=== PATIENT | female | born 1995 | race Caucasian/White ===

== ENCOUNTER 2017-07-21 14:55 | Outpatient (CLI) | payer OTHER, SELFPAY ==
[2017-07-21 15:14] VITALS: BMI 23.4
--- NOTE | 2017-08-03 19:32 | OB.TRI.NOTE ---
History of Present Illness Date of Service: 07/21/17 Was patient seen by the physician?: No Reason For Visit: NON STRESS TEST Date of Service: 07/21/17 Final YARON: 09/12/17 Final YARON Source: US <20 weeks Gestational age: 32.3 History of Present Illness: 22yo G1 with dichorionic diamnionic twin gestation for scheduled NST Home Medications Medication Instructions Recorded Vits [Prenatabs FA] 1 tablet PO DAILY 07/21/17 Allergies No Known Allergies Allergy (Verified 07/29/17 17:23) - Pertinent Past Medical History Pertinent Past Medical History: GDMA1 - diet controlled NST - FHR Rate Baby A Baseline: 150 Variability:: Moderate Accelerations:: 15 x 15 Decelerations:: None NST Reactive:: Yes FHR Category:: Category I Uterine Activity:: irritability - FHR Rate Baby B Baseline: 140 Variability:: Moderate Accelerations:: 15 x 15 Decelerations:: None NST Reactive:: Yes FHR Category:: Category I Uterine Activity:: irritability Impression/Plan 22yo G1 @ 32 3/7wga with dichorionoic diamnionic twin gestation, Cat I FHRs x 2 -d/c home
== END 2017-07-21 16:05 | disposition home or self-care (01) ==
LOC: WPOUT 15:01 → WP 15:02
PROVIDERS: Family Provider Family Medicine; PCP Family Medicine; Visit Provider Obstetrics & Gynecology
DX: O30.043 Twin pregnancy, dichorionic/diamniotic, third trimester (principal); Z3A.32 32 weeks gestation of pregnancy
CPT/HCPCS: 59025; 59050; 99218; G0378

== ENCOUNTER 2017-07-29 17:00 | Outpatient (CLI) | payer OTHER, SELFPAY ==
[2017-07-29 17:22] VITALS: BMI 23.8
--- NOTE | 2017-07-29 17:49 | OB.TRI.NOTE ---
History of Present Illness Date of Service: 07/29/17 Was patient seen by the physician?: No Reason For Visit: NST FOR TWINS Date of Service: 07/29/17 Final YARON: 09/12/17 Final YARON Source: US <20 weeks Gestational age: 33 Weeks and 4 Days History of Present Illness: NST for twins, scheduled Home Medications Medication Instructions Recorded Vits [Prenatabs FA] 1 tablet PO DAILY 07/21/17 Allergies No Known Allergies Allergy (Verified 07/29/17 17:23) Physical Exam General: Alert, Oriented x3, Cooperative, No apparent distress Abdomen: Gravid, - - LGA/twins Extremities:: No edema Estimated gestational size: Large for gestational age Presentation: Unable to assess NST - FHR Rate Baby A Baseline: 140s Variability:: Moderate Accelerations:: 15 x 15 Decelerations:: None NST Reactive:: Yes, Appropriate for gestational age FHR Category:: Category I Uterine Activity:: irregular - FHR Rate Baby B Baseline: 140s Variability:: Moderate Accelerations:: 15 x 15 Decelerations:: None NST Reactive:: Yes, Appropriate for gestational age FHR Category:: Category I Impression/Plan Cat 1 tracing for both twins. F/U as scheduled
== END 2017-07-29 17:50 | disposition home or self-care (01) ==
LOC: WPOUT 17:11 → WP 17:12
PROVIDERS: Family Provider Family Medicine; PCP Family Medicine; Visit Provider Obstetrics & Gynecology
DX: O30.003 Twin pregnancy, unspecified number of placenta and unspecified number of amniotic sacs, third trimester (principal); Z3A.33 33 weeks gestation of pregnancy
CPT/HCPCS: 59025

== ENCOUNTER → 2017-08-03 10:44 | Outpatient (CLI) | payer OTHER, SELFPAY ==
[2017-08-03 12:10] LABS: Hematocrit 37.7 % (37-47); Hemoglobin 12.9 g/dl (12.0-15.0); Mean Corp Hgb Conc 34.2 g/gl (32-36); Mean Corpuscular Hgb 32.2 pg (27.0-32.0); Mean Platelet Vol. 11.4 fl (6.2-12.0); Platelet Count 252 K/mm3 (150-450); RBC Distribution Width CV 12.2 % (11.6-14.6); RBC Distribution Width SD 41.8 fl (35.1-43.9); Red Blood Count 4.01 M/mm3 (4.2-5.4); White Blood Count 8.5 K/mm3 (4.4-11.0)
[2017-08-03 12:11] LABS: Scan Indicated on CBC? Y/N NO
[2017-08-03 12:23] LABS: ALB/GLOB Ratio 0.4 RATIO (0.9-2.4); AST(SGOT) 26 U/L (15-37); Alanine Aminotransfer ALT/SGPT 27 U/L (13-56); Alkaline Phosphatase 309 U/L (45-117); Anion Gap 9 (5-15); BUN 13 mg/dL (7-18); BUN/Creat Ratio 21.2 RATIO (10-20); Calcium,Total 8.7 mg/dL (8.5-10.1); Chloride 104 mmol/L (98-107); Creatinine, Serum 0.61 mg/dL (0.55-1.02); EST Glomerular Filtration Rate 128 mL/min (>60); Est Glom Filt Rate - Afr Amer 155 mL/min (>60); Globulin 4.6 g/dL (2.2-4.2); Glucose 77 mg/dL (74-106); Potassium 4.2 mmol/L (3.5-5.1); Protein, Total 6.6 g/dL (6.4-8.2); Sodium Level 137 mmol/L (136-145); Uric Acid 6.8 mg/dL (2.6-6.0)
== END ==
PROVIDERS: Family Provider Family Medicine; Visit Provider Obstetrics & Gynecology
DX: O13.3 Gestational [pregnancy-induced] hypertension without significant proteinuria, third trimester (principal); Z3A.00 Weeks of gestation of pregnancy not specified
CPT/HCPCS: 36415; 80053; 82570; 84156; 84550; 85027

== ENCOUNTER 2017-08-03 11:00 | Outpatient (CLI) | payer OTHER, SELFPAY ==
[2017-08-03 11:20] VITALS: BMI 24.3
--- NOTE | 2017-08-03 12:59 | OB.TRI.NOTE ---
History of Present Illness Date of Service: 08/03/17 Was patient seen by the physician?: No Reason For Visit: NST Date of Service: 09/12/17 Final YARON Source: US <20 weeks Gestational age: 34.2 History of Present Illness: 22yo G1 at 34 2/7wga with dichorionic diamnionic twin gestation for scheduled NST Home Medications Medication Instructions Recorded Vits [Prenatabs FA] 1 tablet PO DAILY 07/21/17 Allergies No Known Allergies Allergy (Verified 07/29/17 17:23) NST - FHR Rate Baby A Baseline: 150 Variability:: Moderate Accelerations:: 15 x 15 Decelerations:: None NST Reactive:: Yes FHR Category:: Category I Uterine Activity:: 2-4/10 - FHR Rate Baby B Baseline: 140 Variability:: Moderate Accelerations:: 15 x 15 Decelerations:: None NST Reactive:: Yes FHR Category:: Category I Uterine Activity:: 2-4/10 Impression/Plan 22yo G1 @ 34 2/7wga with di-di twins, Cat I FHRs x 2 -Cervix non-laboring per RN exam -d/c home
== END 2017-08-03 12:50 | disposition home or self-care (01) ==
LOC: WPOUT 11:07 → WP 11:10
PROVIDERS: Family Provider Family Medicine; PCP Family Medicine; Visit Provider Obstetrics & Gynecology
DX: O30.043 Twin pregnancy, dichorionic/diamniotic, third trimester (principal); Z3A.34 34 weeks gestation of pregnancy
CPT/HCPCS: 59025; 59050; 99218; G0378

== ENCOUNTER 2017-08-04 11:20 | Outpatient (CLI) | payer OTHER, SELFPAY ==
[2017-08-04] MEDS: Betamethasone/Betamethasone 30 MG/5 ML Vial 12 MG IM (12:00)
[2017-08-04 12:44] VITALS: BMI 24.3
[2017-08-04] MEDS: Acetaminophen 500 MG Tablet 1000 MG PO ×2 (13:46→21:34)
--- NOTE | 2017-08-04 16:08 | US_ITS ---
US OB Limited 1 Or More Fetus INDICATION: DR NEVAREZ WANTS POSITIONS AND ..TO CHECK FOR CORD BELOW HEAD OF BABY A COMPARISON: None TECHNIQUE: Ultrasonographic grayscale and Doppler duplex investigation of the twin . Findings: There is a twin gestation. Baby A is in cephalic position with a heart rate of 161 bpm. Baby B is in cephalic presentation with heart rate of 179 bpm. Baby A's head is noted at the cervix. Cervix is closed, measuring 1.6 cm. All provided images do not demonstrate any evidence of a cord distal to the head of baby A. US/OB Limited (No Biometrics) IMPRESSION: Limited ultrasound to investigate for possible cord prolapse. There is no evidence of cord or any significant vascular structure between the head of baby A (cephalic presentation) and the cervix. at 1843 Reported and signed by: Jumana Tapia MD Electronically Signed: Jumana Tapia MD at 17:41 EST Tel , Service support ,
[2017-08-04 16:59] LABS: Absolute Lymphocyte Count 1.19 X10^3/ul (0.83-4.51); Absolute Neutrophil Count 11.7 X10^3/uL (2.0-7.7); Basophil# 0.01 X10^3/uL; Basophil% 0.1 % (0-1); Hematocrit 36.1 % (37-47); Hemoglobin 12.4 g/dl (12.0-15.0); Lymphocyte # 1.19 X10^3/ul (4.0); Mean Corp Hgb Conc 34.3 g/gl (32-36); Mean Corpuscular Hgb 31.9 pg (27.0-32.0); Mean Corpuscular Volume 92.8 fL (81-99); Mean Platelet Vol. 11.4 fl (6.2-12.0); Monocyte# 0.22 X10^3/uL; Monocyte% 1.7 % (0-10); Neutrophil # 11.72 X10^3/uL (2.7-7.7); Neutrophil % 88.9 % (47-70); POSITIVE COUNT NO; POSITIVE DIFFERENTIAL NO; POSITIVE MORPHOLOGY NO; Platelet Count 263 K/mm3 (150-450); RBC Distribution Width CV 12.2 % (11.6-14.6); RBC Distribution Width SD 41.1 fl (35.1-43.9); Red Blood Count 3.89 M/mm3 (4.2-5.4); White Blood Count 13.2 K/mm3 (4.4-11.0)
[2017-08-04 20:29] LABS: Group B Strep DNA By PCR POSITIVE (Negative); Probe Check PASS
[2017-08-05] MEDS: Zolpidem Tartrate 5 MG Tablet PO (00:14)
[2017-08-05 05:21] LABS: Bedside Glucose 137 mg/dL (70-110)
--- NOTE | 2017-08-05 05:32 | OB.TRI.NOTE ---
History of Present Illness Date of Service: 08/04/17 Reason For Visit: ROPTL Date of Service: 08/04/17 Final YARON: 09/12/17 Gestational age: 34 Weeks and 4 Days History of Present Illness: 22 yo female presents at 34 3/7 wk for evaluation of UCs and was also told to come in for betamethasone. she has a twin IUP (concordant growth, Vtx, Vtx presentation) and has been dx with mild preclampsia. is on bedrest and to deliver by 37 wk if not delivered by then due to BPs She called in to office stating oscar all night and inc intensity and frequency of UCs if she is up at all and walking around. care: Twin IUP transfer of care from bilingual medical receptionist at 26 wks EGA d/t twin IUP Gestational diabetes, diet controlled. Home Medications Medication Instructions Recorded Vits [Prenatabs FA] 1 tablet PO DAILY 07/21/17 Allergies No Known Allergies Allergy (Verified 08/04/17 11:38) Physical Exam General: Alert, Oriented x3, Cooperative, No apparent distress Abdomen: Soft, Non Tender, Gravid Extremities:: No clubbing, No cyanosis, No edema Estimated gestational size: Appropriate for gestational size Cervix Dilation (cm): 3 - (tight three) Station: -1 Effacement (%): 80 - same later in day, but ? cord palpable?? sono ordered NO CORD @ cervix , VTX x two NST - FHR Rate Baby A Baseline: 130-140s accels to 170s Variability:: Moderate Accelerations:: 15 x 15 Decelerations:: None, Variable - rare, to 90-100 with quick return NST Reactive:: Yes, Appropriate for gestational age FHR Category:: Category I Uterine Activity:: UC noted q 2-6 mins - FHR Rate Baby B Baseline: 120-130 with accels to 160s Variability:: Moderate Accelerations:: 15 x 15 Decelerations:: Late - occasional late NST Reactive:: Yes, Appropriate for gestational age FHR Category:: Category I Impression/Plan 34 3/7 wk twin IUP. Vtx, Vtx Concordant growth 5# 2 oz and 5# 4 oz at sono 08/03/17 Mild preeclampsia UCs Admitted to observation Betamethasone 12 mg IM x 2 doses 24 hrs apart. Watch for labor progress ? cord noted on exam , inferior to VTX twin A SONO DONE SHOWS NO CORD PRESENTING. VTX VTX twin IUP continue observation and betamethasone as planned.
--- NOTE | 2017-08-05 05:43 | OB.TRI.HP_ITS ---
History of Present Illness Date of Service: 08/04/17 Reason For Visit: ROPTL Date of Service: 08/04/17 Final YARON: 09/12/17 Gestational age: 34 Weeks and 4 Days History of Present Illness: 22 yo female presents at 34 3/7 wk for evaluation of UCs and was also told to come in for betamethasone. she has a twin IUP (concordant growth , Vtx, Vtx presentation) and has been dx with mild preclampsia. is on bedrest and to deliver by 37 wk if not delivered by then due to BPs She called in to office stating oscar all night and inc intensity and frequency of UCs if she is up at all and walking around. care: Twin IUP transfer of care from human resources vice president at 26 wks EGA d/t twin IUP Gestational diabetes, diet controlled. Home Medications Medication Instructions Recorded Vits [Prenatabs FA] 1 tablet PO DAILY 07/21/17 Allergies No Known Allergies Allergy (Verified 08/04/17 11:38) Physical Exam General: Alert, Oriented x3, Cooperative, No apparent distress Abdomen: Soft, Non Tender, Gravid Extremities:: No clubbing, No cyanosis, No edema Estimated gestational size: Appropriate for gestational size Cervix Dilation (cm): 3 - (tight three) Station: -1 Effacement (%): 80 - same later in day, but ? cord palpable?? sono ordered NO CORD @ cervix , VTX x two NST - FHR Rate Baby A Baseline: 130-140s accels to 170s Variability:: Moderate Accelerations:: 15 x 15 Decelerations:: None, Variable - rare, to 90-100 with quick return NST Reactive:: Yes, Appropriate for gestational age FHR Category:: Category I Uterine Activity:: UC noted q 2-6 mins - FHR Rate Baby B Baseline: 120-130 with accels to 160s Variability:: Moderate Accelerations:: 15 x 15 Decelerations:: Late - occasional late NST Reactive:: Yes, Appropriate for gestational age FHR Category:: Category I Impression/Plan 34 3/7 wk twin IUP. Vtx, Vtx Concordant growth 5# 2 oz and 5# 4 oz at sono Mild preeclampsia UCs Admitted to observation Betamethasone 12 mg IM x 2 doses 24 hrs apart. Watch for labor progress ? cord noted on exam , inferior to VTX twin A SONO DONE SHOWS NO CORD PRESENTING. VTX VTX twin IUP continue observation and betamethasone as planned.
--- NOTE | 2017-08-05 06:01 | OB.TRI.PN ---
Progress Notes Date of Service: 08/05/17 Progress Note: 22 yo female 34 4/7 wk EGA . TWINS VTX-VTX Rested overnight. Category I tracing on both twins Slept with Ambien given Irreg UCs at times q 13 mins and other times more frequent CX: 80/-2 slightly posterior. VTX well applied to cervix and no palpable cord noted. A/P: 34 4/7 wk twin IUP. Mild preeclampsia. BPs stable at rest Betmethasone second dose to be given at noon. Dischg home after second dose BMZ if remains stable.
[2017-08-05 11:56] VITALS: BP 136/75; PULSE 89; RESP 16; TEMP 36.7
[2017-08-05] MEDS: Betamethasone/Betamethasone 30 MG/5 ML Vial 12 MG IM (12:01)
== END 2017-08-05 12:50 | disposition home or self-care (01) ==
LOC: WPOUT 11:36 → WP 11:37
PROVIDERS: Obstetrics & Gynecology; Family Provider Family Medicine; PCP Family Medicine; Visit Provider Obstetrics & Gynecology
DX: O30.003 Twin pregnancy, unspecified number of placenta and unspecified number of amniotic sacs, third trimester (principal); O14.03 Mild to moderate pre-eclampsia, third trimester; O24.410 Gestational diabetes mellitus in pregnancy, diet controlled; O60.03 Preterm labor without delivery, third trimester; Z3A.34 34 weeks gestation of pregnancy
CPT/HCPCS: 36415; 59025; 59050; 76815; 82962; 85025; 86850; 86900; 87653; 96372; 99218; A4216; G0378; J0702

== ENCOUNTER 2017-08-10 10:23 | Outpatient (CLI) | payer OTHER, SELFPAY ==
[2017-08-10 11:20] LABS: Hematocrit 37.7 % (37-47); Hemoglobin 12.8 g/dl (12.0-15.0); Mean Corpuscular Hgb 31.6 pg (27.0-32.0); Mean Corpuscular Volume 93.1 fL (81-99); Mean Platelet Vol. 11.2 fl (6.2-12.0); Platelet Count 275 K/mm3 (150-450); RBC Distribution Width CV 12.1 % (11.6-14.6); RBC Distribution Width SD 40.9 fl (35.1-43.9); Red Blood Count 4.05 M/mm3 (4.2-5.4); White Blood Count 8.2 K/mm3 (4.4-11.0)
[2017-08-10 11:22] LABS: Scan Indicated on CBC? Y/N NO
[2017-08-10 11:25] LABS: Protein, Urine (Random) 78.5 mg/dL (<11.9)
[2017-08-10 11:31] LABS: ALB/GLOB Ratio 0.4 RATIO (0.9-2.4); AST(SGOT) 30 U/L (15-37); Alanine Aminotransfer ALT/SGPT 36 U/L (13-56); Albumin, Serum 1.9 g/dL (3.2-5.0); Alkaline Phosphatase 339 U/L (45-117); Anion Gap 9 (5-15); BUN 14 mg/dL (7-18); BUN/Creat Ratio 22.4 RATIO (10-20); Calcium,Total 8.3 mg/dL (8.5-10.1); Chloride 107 mmol/L (98-107); Creatinine, Serum 0.63 mg/dL (0.55-1.02); EST Glomerular Filtration Rate 125 mL/min (>60); Est Glom Filt Rate - Afr Amer 152 mL/min (>60); Globulin 4.4 g/dL (2.2-4.2); Glucose 86 mg/dL (74-106); Protein, Total 6.3 g/dL (6.4-8.2); Sodium Level 139 mmol/L (136-145); Uric Acid 6.9 mg/dL (2.6-6.0)
[2017-08-10 11:41] VITALS: BMI 24.3
--- NOTE | 2017-08-12 07:14 | OB.TRI.NOTE ---
History of Present Illness Date of Service: 08/10/17 Reason For Visit: INDUCED HYPERTENSION Date of Service: 08/10/17 Final YARON: 09/12/17 Final YARON Source: US <20 weeks Gestational age: 35 Weeks and 4 Days History of Present Illness: 35+ week intrauterine with twin gestation presents for routine nonstress test. uneventful except for some mild PIH symptoms Home Medications Medication Instructions Recorded Vits [Prenatabs FA] 1 tablet PO DAILY 07/21/17 Allergies No Known Allergies Allergy (Verified 08/04/17 11:38) NST - FHR Rate Baby A NST Reactive:: Yes - FHR Rate Baby B NST Reactive:: Yes Impression/Plan 35+ week gestation with twin gestation with reactive nonstress test ?2. Minimal PIH symptoms and PIH panel was okay. Was noted that uric acid was 6.9. Routine follow-up in the office encouraged. Patient also encouraged to call with any increase of PIH symptoms.
== END 2017-08-10 12:35 | disposition home or self-care (01) ==
LOC: WOBLAB 11:25 → WP 11:26
PROVIDERS: Obstetrics & Gynecology; Visit Provider Obstetrics & Gynecology
DX: O13.9 Gestational [pregnancy-induced] hypertension without significant proteinuria, unspecified trimester (principal); Z34.83 Encounter for supervision of other normal pregnancy, third trimester
CPT/HCPCS: 36415; 59025; 59050; 80053; 82570; 84156; 84550; 85027; 99218; G0378

== ENCOUNTER 2017-08-17 09:25 | Inpatient (IN) | payer SELFPAY ==
[2017-08-17 09:47] VITALS: BMI 24.3
[2017-08-17] MEDS: Lactated Ringers 1,000 ML 50 ML IV ×2 (10:02→14:41)
[2017-08-17] MEDS: Oxytocin 30 units/NS 500 ml 30 UNITS/500 ML IV.SOLN IV (10:40)
[2017-08-17 10:41] LABS: International Normalized Ratio 0.9; Prothrombin Time (Protime)PT. 12.4 SECONDS (11.7-14.9)
[2017-08-17 10:42] LABS: Partial Thromboplast Time 30.3 Seconds (24.1-36.2)
[2017-08-17 10:44] LABS: Hematocrit 36.5 % (37-47); Hemoglobin 12.6 g/dl (12.0-15.0); Mean Corp Hgb Conc 34.5 g/gl (32-36); Mean Corpuscular Hgb 32.5 pg (27.0-32.0); Mean Corpuscular Volume 94.1 fL (81-99); Mean Platelet Vol. 12.2 fl (6.2-12.0); Platelet Count 230 K/mm3 (150-450); RBC Distribution Width CV 12.2 % (11.6-14.6); RBC Distribution Width SD 40.8 fl (35.1-43.9); Red Blood Count 3.88 M/mm3 (4.2-5.4); White Blood Count 9.4 K/mm3 (4.4-11.0)
[2017-08-17 10:55] LABS: Scan Indicated on CBC? Y/N NO
[2017-08-17 11:03] LABS: AST(SGOT) 25 U/L (15-37); Alanine Aminotransfer ALT/SGPT 22 U/L (13-56); Creatinine, Serum 0.58 mg/dL (0.55-1.02); EST Glomerular Filtration Rate 136 mL/min (>60); Est Glom Filt Rate - Afr Amer 165 mL/min (>60); Estimated Creatinine Clearance 135.74 ml/min; Uric Acid 6.9 mg/dL (2.6-6.0)
--- NOTE | 2017-08-17 12:32 | PCM.HP.OB ---
- Problem List (1) Preeclampsia Status: Acute Qualifiers: Trimester: third trimester Qualified Code(s): O14.93 - Unspecified pre-eclampsia, third trimester (2) Dichorionic diamniotic twin gestation Status: Acute Qualifiers: Trimester: third trimester Qualified Code(s): O30.043 - Twin , dichorionic/diamniotic, third trimester (3) Gestational diabetes mellitus Status: Acute Qualifiers: Gestational diabetes mellitus control: diet-controlled Trimester: third trimester Qualified Code(s): O24.410 - Gestational diabetes mellitus in , diet controlled History Date of Admission: 08/17/17 Final YARON: 09/12/17 Final YARON Source: US <20 weeks Gestational age: 36 Weeks and 5 Days History of this : Ms. Pinzon any 2-year-old 1 para 0 at 36-2/7 weeks gestational age with dichorionic diamniotic twin gestation and gestational diabetes admitted with preeclampsia. Monitor for preeclampsia since 34 weeks gestational age and received betamethasone on August 04 - August 05, 2017. She was seen in the office earlier today and reported headache ?3 days. Denied vision changes, right upper quadrant pain. No contractions, no leaking of fluid, no vaginal bleeding. She had active movement ?2. 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 Chorionic diamniotic twin gestation, male and female. Female has two-vessel cord. Prior marginal previa on 20 week scan resolved. labs -1 hour Glucola 147. 3 hour GTT declined, fingerstick blood sugars with hyperglycemia. Now controlled with diet. -HIV nonreactive -Hepatitis C antibody negative -A+ -RPR nonreactive -Hep B surface antigen nonreactive -Gonorrhea negative, chlamydia negative -GBS positive Family history: mother -hypertension Allergies No Known Allergies Allergy (Verified 08/04/17 11:38) Current Medications Acetaminophen (Tylenol) 325 - 650 mg PO Q4H PRN PRN PRN Reason: PAIN OR FEVER >100.4F Al Hydroxide/Mg Hydroxide (Mylanta Ii) 15 - 30 ml PO Q4H PRN PRN PRN Reason: INDIGESTION Citric Acid/Sodium Citrate (Bicitra) 30 ml PO UD PRN Lactated Ringer's () 1,000 mls @ 50 mls/hr IV .Q20H [facility] Last Admin: 08/17/17 10:02 Dose: 50 mls/hr Oxytocin/Sodium Chloride () 30 units in 500 mls @ 1 mls/hr IV .Q500H [facility] Last Admin: 08/17/17 10:40 Dose: 1 mls/hr Penicillin G Potassium 5 mu/ (Dextrose) 105 mls @ 150 mls/hr IV X1 ONE Stop: 08/17/17 12:56 Last Admin: 08/17/17 12:25 Dose: 150 mls/hr Penicillin G Potassium/Dextrose (Penicillin G Potassium) 3 mu in 50 mls @ 100 mls/hr IV Q4H [facility] Nalbuphine HCl (Nubain) 5 - 10 mg IV Q3H PRN PRN PRN Reason: PAIN (4-10/10) Ondansetron HCl (Zofran) 4 mg IV Q8H PRN PRN PRN Reason: NAUSEA Promethazine HCl (Phenergan (Ll)) 6.25 - 12.5 mg IV Q4H PRN PRN; Protocol PRN Reason: IF NAUSEA PERSISTS Sodium Chloride () 5 - 15 ml IV UD [facility] Last Admin: 08/17/17 10:56 Dose: Not Given HOME MEDICATIONS: multivitamin - 1 tab PO daily DHA - 1 tab PO daily Alcohol: None Drug Use: none Number of Fetus(es): 2 Review of Systems Constitutional: Denies: Fever, Fatigue Eyes: Denies: Blurred vision Cardiovascular: Denies: Chest Pain, Edema, Heaviness, Palpitations Respiratory: Denies: Shortness of Breath Gastrointestinal: Denies: Abdominal Pain, Nausea, Vomiting Gynecological: Denies: Vaginal bleeding Neurological: Reports: Headaches. Denies: Blurred vision Physical Exam General: Alert, Oriented x3, Cooperative, No apparent distress Cardiovascular: Regular rate, Regular Rhythm, Normal S2 Lungs: Clear to auscultation, Normal air movement Abdomen: Bowel Sounds Present, Soft, Non Tender, Non-Distended, Gravid Extremities:: Other - +3 b/l LE DTRs, no clonus Estimated gestational size: Appropriate for gestational size Cervix Dilation (cm): 3.5 Station: -3 Effacement (%): 75 Assessment/Plan Active and Suspected Problems Preeclampsia (Acute) Dichorionic diamniotic twin gestation (Acute) Gestational diabetes mellitus (Acute) 22-year-old 1 at 36-2/7 weeks gestational age with dichorionic diamniotic twin gestation with preeclampsia and severe features, gestational diabetes-diet controlled, GBS positive. -EFW A-[id number], B-[id number] gms on 08/03/17, US today both cephalic. Cat I FHRs x 2. -Pt declines Tylenol for headache. -Plan for magnesium for seizure prophylaxis -Pitocin for favorable cervix -PCN for GBS ppx -Continuous monitoring -Monitor blood sugars per protocol -Reviewed with patient and spouse plan of care and they are in agreement. Questions answered to their satisfaction.
[2017-08-17 12:35] LABS: Bedside Glucose 102 mg/dL (70-110)
--- NOTE | 2017-08-17 12:45 | HP.PCM_ITS ---
- Problem List (1) Preeclampsia Status: Acute Qualifiers: Trimester: third trimester Qualified Code(s): O14.93 - Unspecified pre- eclampsia, third trimester (2) Dichorionic diamniotic twin gestation Status: Acute Qualifiers: Trimester: third trimester Qualified Code(s): O30.043 - Twin , dichorionic/diamniotic, third trimester (3) Gestational diabetes mellitus Status: Acute Qualifiers: Gestational diabetes mellitus control: diet-controlled Trimester: third trimester Qualified Code(s): O24.410 - Gestational diabetes mellitus in , diet controlled History Date of Admission: 08/17/17 Final YARON: 09/12/17 Final YARON Source: US <20 weeks Gestational age: 36 Weeks and 5 Days History of this : Ms. Pinzon any 2-year-old 1 para 0 at 36-2/7 weeks gestational age with dichorionic diamniotic twin gestation and gestational diabetes admitted with preeclampsia. Monitor for preeclampsia since 34 weeks gestational age and received betamethasone on August 04 - August 05, 2017. She was seen in the office earlier today and reported headache ?3 days. Denied vision changes, right upper quadrant pain. No contractions, no leaking of fluid, no vaginal bleeding. She had active movement ?2. 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 Chorionic diamniotic twin gestation, male and female. Female has two-vessel cord. Prior marginal previa on 20 week scan resolved. labs -1 hour Glucola 147. 3 hour GTT declined, fingerstick blood sugars with hyperglycemia. Now controlled with diet. -HIV nonreactive -Hepatitis C antibody negative -A+ -RPR nonreactive -Hep B surface antigen nonreactive -Gonorrhea negative, chlamydia negative -GBS positive Family history: mother -hypertension Allergies No Known Allergies Allergy (Verified 08/04/17 11:38) Current Medications Acetaminophen (Tylenol) 325 - 650 mg PO Q4H PRN PRN PRN Reason: PAIN OR FEVER >100.4F Al Hydroxide/Mg Hydroxide (Mylanta Ii) 15 - 30 ml PO Q4H PRN PRN PRN Reason: INDIGESTION Citric Acid/Sodium Citrate (Bicitra) 30 ml PO UD PRN Lactated Ringer's () 1,000 mls @ 50 mls/hr IV .Q20H [facility] Last Admin: 08/17/17 10:02 Dose: 50 mls/hr Oxytocin/Sodium Chloride () 30 units in 500 mls @ 1 mls/hr IV .Q500H [facility] Last Admin: 08/17/17 10:40 Dose: 1 mls/hr Penicillin G Potassium 5 mu/ (Dextrose) 105 mls @ 150 mls/hr IV X1 ONE Stop: 08/17/17 12:56 Last Admin: 08/17/17 12:25 Dose: 150 mls/hr Penicillin G Potassium/Dextrose (Penicillin G Potassium) 3 mu in 50 mls @ 100 mls/hr IV Q4H [facility] Nalbuphine HCl (Nubain) 5 - 10 mg IV Q3H PRN PRN PRN Reason: PAIN (4-10/10) Ondansetron HCl (Zofran) 4 mg IV Q8H PRN PRN PRN Reason: NAUSEA Promethazine HCl (Phenergan (Ll)) 6.25 - 12.5 mg IV Q4H PRN PRN; Protocol PRN Reason: IF NAUSEA PERSISTS Sodium Chloride () 5 - 15 ml IV UD [facility] Last Admin: 08/17/17 10:56 Dose: Not Given HOME MEDICATIONS: multivitamin - 1 tab PO daily DHA - 1 tab PO daily Alcohol: None Drug Use: none Number of Fetus(es): 2 Review of Systems Constitutional: Denies: Fever, Fatigue Eyes: Denies: Blurred vision Cardiovascular: Denies: Chest Pain, Edema, Heaviness, Palpitations Respiratory: Denies: Shortness of Breath Gastrointestinal: Denies: Abdominal Pain, Nausea, Vomiting Gynecological: Denies: Vaginal bleeding Neurological: Reports: Headaches. Denies: Blurred vision Physical Exam General: Alert, Oriented x3, Cooperative, No apparent distress Cardiovascular: Regular rate, Regular Rhythm, Normal S2 Lungs: Clear to auscultation, Normal air movement Abdomen: Bowel Sounds Present, Soft, Non Tender, Non-Distended, Gravid Extremities:: Other - +3 b/l LE DTRs, no clonus Estimated gestational size: Appropriate for gestational size Cervix Dilation (cm): 3.5 Station: -3 Effacement (%): 75 Assessment/Plan Active and Suspected Problems Preeclampsia (Acute) Dichorionic diamniotic twin gestation (Acute) Gestational diabetes mellitus (Acute) 22-year-old 1 at 36-2/7 weeks gestational age with dichorionic diamniotic twin gestation with preeclampsia and severe features, gestational diabetes-diet controlled, GBS positive. -EFW A-2313, B-2394 gms on 08/03/17, US today both cephalic. Cat I FHRs x 2. -Pt declines Tylenol for headache. -Plan for magnesium for seizure prophylaxis -Pitocin for favorable cervix -PCN for GBS ppx -Continuous monitoring -Monitor blood sugars per protocol -Reviewed with patient and spouse plan of care and they are in agreement. Questions answered to their satisfaction.
[2017-08-17 13:51] LABS: Bedside Glucose 66 mg/dL (70-110)
[2017-08-17] MEDS: Magnesium Sulfate 20 GM/500 ML BAG IV (14:05)
[2017-08-17 14:51] LABS: Bedside Glucose 121 mg/dL (70-110)
[2017-08-17 14:51] LABS: Bedside Glucose 62 mg/dL (70-110)
[2017-08-17 15:36] LABS: Bedside Glucose 128 mg/dL (70-110)
[2017-08-17 17:26] LABS: Bedside Glucose 77 mg/dL (70-110)
[2017-08-17 18:57] LABS: Bedside Glucose 82 mg/dL (70-110)
[2017-08-17] MEDS: Acetaminophen 325 MG Tablet PO (19:39)
[2017-08-17 20:06] LABS: Protein:Creat Ratio 1683 mg/g CRE (0-200)
[2017-08-17 22:36] LABS: Bedside Glucose 66 mg/dL (70-110)
[2017-08-17 23:51] LABS: Bedside Glucose 82 mg/dL (70-110)
[2017-08-18] VITALS (7 sets, daily range): BP systolic 94–100; BP diastolic 48–60; PULSE 91–125; RESP 16–18; TEMP 36–36.2; O2SAT 98–100
[2017-08-18] MEDS: Magnesium Sulfate 20 GM/500 ML BAG IV ×3 (00:19→22:25)
[2017-08-18 02:51] LABS: Bedside Glucose 76 mg/dL (70-110)
[2017-08-18] MEDS: Acetaminophen 325 MG Tablet PO ×2 (04:29→14:23)
[2017-08-18] MEDS: Ondansetron 4 MG/2 ML Vial IV ×3 (05:57→23:34)
[2017-08-18 06:50] LABS: Bedside Glucose 76 mg/dL (70-110)
--- NOTE | 2017-08-18 07:13 | PCM.PN.BLA ---
Progress Note LABOR PROGRESS NOTE Relates headache persists, mild, improved from prior. Has blurred vision AVSS GEN - NAD, AAO x 3 ABD - gravid, soft, NT EXT - no LE edema NEURO - + 1 b/l LE DTRs, +1 b/l UE DTRs FHR A 120, moderate variability, + accelerations, no decelerations FHR B 120, moderate variability, no acceleration, no decelerations, some loss of contact SVE 4/75/-2, cephalic A/P: 22yo G1 @ 36 3/7wga with dichorionic diamnionic twin gestation, GDMA1, Cat I FHR on magnesium with si/sx toxicity or worsening preeclampsia. -Amniotomy performed with clear fluid -IUPC placed, if contractions adequate will maintain pitocin. If inadequate will plan for pitocin break. - statuses overall reassuring
[2017-08-18] MEDS: 0.9% Saline Lock 10 ML Syringe IV (09:46)
[2017-08-18 10:40] LABS: Bedside Glucose 72 mg/dL (70-110)
[2017-08-18] MEDS: Lactated Ringers 1,000 ML 50 ML IV (11:08)
--- NOTE | 2017-08-18 12:38 | PCM.PN.BLA ---
Progress Note LABOR PROGRESS NOTE c/o rectal pressure with contractions. AVSS GEN - NAD, AAO x 3 FHR A - 120, moderate variability, + accelerations, no decelerations FHR B - 120, moderate variability, + accelerations, some loss of contact unclear if deceleration versus maternal heart rate SVE 5.5/90/0, cephalic EXT - +1 b/l LE DTRS, +1 b/l LE edema A/P: 22yo G1 @ 36 3/7wga in latent labor, IOL for preeclampsia with severe features, GDMA1, GBS positive, Cat I-II FHR -No si/sx magesium toxicity or worsening preeclampsia -Continue pitocin as tolerated by mother and fetuses
[2017-08-18 13:11] LABS: Bedside Glucose 69 mg/dL (70-110)
[2017-08-18 13:56] LABS: Bedside Glucose 77 mg/dL (70-110)
[2017-08-18 13:56] LABS: Bedside Glucose 68 mg/dL (70-110)
[2017-08-18 15:11] LABS: Bedside Glucose 78 mg/dL (70-110)
[2017-08-18 17:41] LABS: Bedside Glucose 88 mg/dL (70-110)
[2017-08-18 19:06] LABS: Bedside Glucose 96 mg/dL (70-110)
[2017-08-18] MEDS: Oxytocin 30 units/NS 500 ml 30 UNITS/500 ML IV.SOLN 334 UNITS IV (19:38)
[2017-08-18] MEDS: Carboprost Tromethamine 250 MCG/ML Ampul IM ×2 (19:40→20:06)
[2017-08-18] MEDS: miSOPROStol 200 MCG Tablet 800 MCG RECTAL (20:01)
[2017-08-18 20:18] LABS: International Normalized Ratio 1.1; Prothrombin Time (Protime)PT. 14.4 SECONDS (11.7-14.9)
[2017-08-18 20:19] LABS: Fibrinogen 542 mg/dl (203-444); Partial Thromboplast Time 27.5 Seconds (24.1-36.2)
[2017-08-18 20:20] LABS: Absolute Lymphocyte Count 1.63 X10^3/ul (0.83-4.51); Basophil# 0.02 X10^3/uL; Basophil% 0.2 % (0-1); Hematocrit 29.5 % (37-47); Hemoglobin 9.7 g/dl (12.0-15.0); Lymphocyte # 1.63 X10^3/ul (4.0); Lymphocyte % 13.5 % (19-41); Mean Corp Hgb Conc 32.9 g/gl (32-36); Mean Corpuscular Hgb 31.8 pg (27.0-32.0); Mean Corpuscular Volume 96.7 fL (81-99); Mean Platelet Vol. 11.5 fl (6.2-12.0); Monocyte# 0.45 X10^3/uL; Monocyte% 3.7 % (0-10); Neutrophil # 9.95 X10^3/uL (2.7-7.7); Neutrophil % 82.4 % (47-70); Platelet Count 283 K/mm3 (150-450); RBC Distribution Width CV 13.1 % (11.6-14.6); RBC Distribution Width SD 45.4 fl (35.1-43.9); Red Blood Count 3.05 M/mm3 (4.2-5.4); White Blood Count 12.1 K/mm3 (4.4-11.0)
[2017-08-18 20:21] LABS: Differential Indicated SCAN CRITERIA MET; POSITIVE COUNT NO; POSITIVE DIFFERENTIAL NO; POSITIVE MORPHOLOGY YES
[2017-08-18 20:58] LABS: Anisocytosis RARE; Macrocytosis RARE; Platelet Estimate ADEQUATE (ADEQ)
--- NOTE | 2017-08-18 21:24 | PCM.OB.VAG ---
- Problem List (1) Preeclampsia Status: Acute Qualifiers: Trimester: third trimester Qualified Code(s): O14.93 - Unspecified pre-eclampsia, third trimester (2) Dichorionic diamniotic twin gestation Status: Acute Qualifiers: Trimester: third trimester Qualified Code(s): O30.043 - Twin , dichorionic/diamniotic, third trimester (3) Gestational diabetes mellitus Status: Acute Qualifiers: Gestational diabetes mellitus control: diet-controlled Trimester: third trimester Qualified Code(s): O24.410 - Gestational diabetes mellitus in , diet controlled Vaginal Delivery Maternal Presentation: Medically Indicated Induction Method of Induction: Pitocin, Amniotomy Medical Reason for Induction: - - Preeclampsia with severe features Amniotic Membrane Rupture Type: Artificial Rupture of Membrane time: 08/18/17 Amniotic Fluid Description: Clear Final YARON: 09/12/17 Final YARON Source: US <20 weeks Gestational age: 36 Weeks and 3 Days doctor who attended delivery (if requested by OB): Kayla Phillips Date of Procedure: 08/18/17 Pre-Operative Diagnosis: 36 3/7wga, preeclampsia, GDM, GBS positive Post-Operative Diagnosis: same Surgery/ Procedure Performed: Spontaneous Vaginal Delivery, Vacuum Assisted Vaginal Delivery, - - See note Anesthesiologist: Roxanna Patel Type of Anesthesia: Epidural Description of Procedure: Patient FD/+2 with fetuses cephalic and cephalic. She pushed over approximately 2.5 hours to deliver a male in OA over and intact perineum. infant was place on the maternal abdomen and attended by nursery personnel. The cord was doubly clamped and cut. Twin B remained cephalic and Cat I FHR. She was was guided into the pelvis with fundal pressure and amniotomy performed with clear fluid. The exam was FD/0 station. Baby B began to have deepening decelerations with each contraction. I advised vacuum extraction with review of risks including scalp edema, laceration with possible infection or need for sutures, subgaleal hemorrhage, skull fracture, cephalohematoma. Patient and were in agreement to proceed. Baby B was direct OP. The vacuum was placed at the flexion point and 500mmHg applied. There were two pop-offs with a third application with pop-offs. A Right mediolateral episiotomy was cut and the patient delivered shortly thereafter. The delivered through a tight nuchal cord, the cord was reduced following delivery, and she was placed on the maternal abdomen. She had decreased tone, thus the cord doubly clamped and cut immediately, and the was further attended by nursery personnel and the Dba Manager wind farm operations manager. Cord gas specimen were obtained for each baby. Placentas delivered spontaneously and appeared intact on inspection. Placenta A cord has 2 clamps. Placenta B cord has 1 clamp. There was hemorrhage. The cervix intact on inspection, no significant vaginal lacerations apart from the episiotomy noted. An intrauterine exam was performed with retrieval of blood and clots, few membranes. Bimanual uterine massage was performed with improvement of fundal tone. IV pitocin, IM hemabate and cytotec were administered per rectum. Organized clot remained in the uterus on exam. US guided banjo curettage was performed following recurrence of bleeding and additional hemabate administered. The uterine stripe was thin following curettage. A Bakri balloon was placed and filled, however, there continued to be oozing of blood around it. Repeat US showed the Bakri malpositioned in the lower uterine segment. Tranexamic acid ordered and type and cross. The Bakri balloon was deflated under US guidance with Dr. Bloom performing US. The Bakri was repositioned into the uterine fundus and filled with a total of 360cc NS with significant improvement of hemostasis. Blood transfusion was started in the OR. Baby A 2597g, Baby B 2690g, 2VC Presentation: Vertex Placental Delivery Description: Spontaneous Placenta Disposition: Sent to Pathology Cord Vessel Description: 3 Vessels Cord Gases drawn per routine: ABG, VBG Cord Entanglement: None Drain: Stuart to straight drain Estimated Blood Loss: 2000 mL Infant A gender: Male (1 minute): 8 (5 minute): 8 Episiotomy Description: Right Mediolateral, Perineal Extension/lac, 2nd degree Medications given after delivery: IV Pitocin, IM Hemabate, - - Cytotec Complications: - - hemorrhage - see procedure note Baby B - Information Amniotic Membrane Rupture Type: Artificial Presentation: Vertex - Operative Information Cord Entanglement: Around neck x 1, tight Cord Vessel Description: 2 Vessels B gender: Female (1 minute): 1 (5 minute): 7 - 8 at 10 minutes of life
--- NOTE | 2017-08-18 21:29 | OP.PCM_ITS ---
- Problem List (1) Preeclampsia Status: Acute Qualifiers: Trimester: third trimester Qualified Code(s): O14.93 - Unspecified pre- eclampsia, third trimester (2) Dichorionic diamniotic twin gestation Status: Acute Qualifiers: Trimester: third trimester Qualified Code(s): O30.043 - Twin , dichorionic/diamniotic, third trimester (3) Gestational diabetes mellitus Status: Acute Qualifiers: Gestational diabetes mellitus control: diet-controlled Trimester: third trimester Qualified Code(s): O24.410 - Gestational diabetes mellitus in , diet controlled Vaginal Delivery Maternal Presentation: Medically Indicated Induction Method of Induction: Pitocin, Amniotomy Medical Reason for Induction: - - Preeclampsia with severe features Amniotic Membrane Rupture Type: Artificial Rupture of Membrane time: 08/18/17 Amniotic Fluid Description: Clear Final YARON: 09/12/17 Final YARON Source: US <20 weeks Gestational age: 36 Weeks and 3 Days doctor who attended delivery (if requested by OB): Kayla Phillips Date of Procedure: 08/18/17 Pre-Operative Diagnosis: 36 3/7wga, preeclampsia, GDM, GBS positive Post-Operative Diagnosis: same Surgery/ Procedure Performed: Spontaneous Vaginal Delivery, Vacuum Assisted Vaginal Delivery, - - See note Anesthesiologist: Roxanna Patel Type of Anesthesia: Epidural Description of Procedure: Patient FD/+2 with fetuses cephalic and cephalic. She pushed over approximately 2.5 hours to deliver a male infant in OA over and intact perineum. was place on the maternal abdomen and attended by nursery personnel. The cord was doubly clamped and cut. Twin B remained cephalic and Cat I FHR. She was was guided into the pelvis with fundal pressure and amniotomy performed with clear fluid. The exam was FD/0 station. Baby B began to have deepening decelerations with each contraction. I advised vacuum extraction with review of risks including scalp edema, laceration with possible infection or need for sutures, subgaleal hemorrhage, skull fracture, cephalohematoma. Patient and were in agreement to proceed. Baby B was direct OP. The vacuum was placed at the flexion point and 500mmHg applied. There were two pop-offs with a third application with pop-offs. A Right mediolateral episiotomy was cut and the patient delivered shortly thereafter. The delivered through a tight nuchal cord, the cord was reduced following delivery, and she was placed on the maternal abdomen. She had decreased tone, thus the cord doubly clamped and cut immediately, and the was further attended by nursery personnel and the Hybrid Technologist operations support analyst. Cord gas specimen were obtained for each baby. Placentas delivered spontaneously and appeared intact on inspection. Placenta A cord has 2 clamps. Placenta B cord has 1 clamp. There was hemorrhage. The cervix intact on inspection, no significant vaginal lacerations apart from the episiotomy noted. An intrauterine exam was performed with retrieval of blood and clots, few membranes. Bimanual uterine massage was performed with improvement of fundal tone. IV pitocin, IM hemabate and cytotec were administered per rectum. Organized clot remained in the uterus on exam. US guided banjo curettage was performed following recurrence of bleeding and additional hemabate administered. The uterine stripe was thin following curettage. A Bakri balloon was placed and filled, however, there continued to be oozing of blood around it. Repeat US showed the Bakri malpositioned in the lower uterine segment. Tranexamic acid ordered and type and cross. The Bakri balloon was deflated under US guidance with Dr. Bloom performing US. The Bakri was repositioned into the uterine fundus and filled with a total of 360cc NS with significant improvement of hemostasis. Blood transfusion was started in the OR. Baby A 2597g, Baby B 2690g, 2VC Presentation: Vertex Placental Delivery Description: Spontaneous Placenta Disposition: Sent to Pathology Cord Vessel Description: 3 Vessels Cord Gases drawn per routine: ABG, VBG Cord Entanglement: None Drain: Stuart to straight drain Estimated Blood Loss: 2000 mL Infant A gender: Male (1 minute): 8 (5 minute): 8 Episiotomy Description: Right Mediolateral, Perineal Extension/lac, 2nd degree Medications given after delivery: IV Pitocin, IM Hemabate, - - Cytotec Complications: - - hemorrhage - see procedure note Baby B - Information Amniotic Membrane Rupture Type: Artificial Presentation: Vertex - Operative Information Cord Entanglement: Around neck x 1, tight Cord Vessel Description: 2 Vessels Infant B gender: Female (1 minute): 1 (5 minute): 7 - 8 at 10 minutes of life
--- NOTE | 2017-08-18 22:30 | NURSING ---
TOTAL IV FLUIDS FROM DELIVERY
[2017-08-18 22:56] LABS: Bedside Glucose 141 mg/dL (70-110)
[2017-08-19] VITALS (17 sets, daily range): BP systolic 102–128; BP diastolic 51–66; PULSE 81–107; RESP 16–18; TEMP 35.9–37.7; O2SAT 94–100
--- NOTE | 2017-08-19 00:30 | NURSING ---
patient has bakry balloon in place
[2017-08-19] MEDS: 0.9% Saline Lock 10 ML Syringe IV ×3 (00:39→15:35)
--- NOTE | 2017-08-19 02:06 | NURSING ---
Nursing note written after event: Baby B (girl) delivered at 193, placentas delivered at 1938. 1938 Dr Maranda Bunn continuously assessing patient due to bleeding. Pt's remains at bedside, supportive. 1939 BP 110/96, order received to administer hemabate 250 mcg, given IM in left thigh 1943 patient feeling faint, Vitals continuously assessed per anesthesia monitor and anesthesia personnel: BP 51/36. Smelling salt for pt. Preparing to start a second IV for bolus. 1949 IV bolus infusing, BP 56/36 1951 pitocin changed to 999ml/hr per order from Dr. Reyes. BP 56/36, 97% 1952 BP 57/35, PO 98% 1954 BP 78/47 1956 2nd IV started at this time by Dr Patel. 18G in Left AC. CBC, PT,PTT, Fibrinogen drawn as well. LR started at 999ml/hr 2000 800 mcg cytotec given rectally by Dr Stanford. Blood bank called to type and cross 2 units of blood per Dr. Reyes order. 2003 BP 94/77, HR 119, PO 100%, RR 20 2005 2nd dose Hemabate given 250mcg IM in right thigh per Dr. Reyes order 2006 BP 124/64, HR 118, PO 100% 2007 Ultrasound performed at bedside by Maranda Bunn for further assessment 2012 BP 128/57, HR 130m PO 100% 2019 BP 138/110, HR 115 2022 Bakri balloon placed by Dr Maranda Bunn, instilled with 410 ml 0.9% NaCl 2030 BP 94/48, HR 125 2031 vaginal packing placed by Dr. Reyes 2034 temporal temp taken, 96.5, pt continues to refuse warm blankets at this time 2035 Dr Costello in OR per request of Dr Maranda Bunn. They performed bedside ultrasounds at this time for further assessment 2038 this RN called blood bank for notification of need for blood product due to hemorrhage per Dr. Reyes order. 2043 BP 101/51 HR 107, PO 98% 2051 Enriquez catheter irrigated by this RN , was not draining well. Blood bank called back and said that it would be 35 more minutes until type and cross completed, offered to give trauma blood at this time if needed immediately. Dr Stanford ordered trauma blood x1 unit. 2053 TXA given by Sam, RN as requested by Dr Stanford 2100 Dr Maranda Bunn emptying bakri balloon to adjust placement. BP 98/49, HR 110, PO 99% 2101 Bakri balloon replaced- refilled with 360 ml 2103 Trauma blood arrived to OR. Blood verified by Dr Patel and Vinny 2105 BP 88/32, HR 104, PO 96% 2008 Blood transfusion started by Dr Patel at this time. Temporal temp 96.3, HR 100 PO 87%. 2109 HR 100, PO 99% 2111 BP 102/44, PO 100%, HR 101, RR 20 2116 Epidural pump stopped by Dr Patel and capped. 2117 Enriquez catheter still not draining well, removed at this time by this RN as requested by Dr. Reyes. 2124 New enriquez placed, 16 sami, with return blood tinged urine. 2127 Blood transfusion complete. 2129 Patient transferred to bed for transfer back to room 14 2134 out of OR
[2017-08-19] MEDS: Cefazolin 2 GM in 0.9% Normal Saline 100 ML IV ×2 (05:36→13:02)
[2017-08-19 05:51] LABS: Bedside Glucose 88 mg/dL (70-110)
--- NOTE | 2017-08-19 06:30 | NURSING ---
RN unable to obtain CBC, x2 trys. Rn called lab for assistance
[2017-08-19 07:20] LABS: Hematocrit 24.5 % (37-47); Hemoglobin 8.7 g/dl (12.0-15.0); Mean Corp Hgb Conc 35.5 g/gl (32-36); Mean Corpuscular Hgb 31.4 pg (27.0-32.0); Mean Corpuscular Volume 88.4 fL (81-99); Mean Platelet Vol. 11.2 fl (6.2-12.0); Platelet Count 199 K/mm3 (150-450); RBC Distribution Width CV 14.3 % (11.6-14.6); RBC Distribution Width SD 45.6 fl (35.1-43.9); Red Blood Count 2.77 M/mm3 (4.2-5.4); White Blood Count 21.1 K/mm3 (4.4-11.0)
[2017-08-19 07:34] LABS: Scan Indicated on CBC? Y/N NO
--- NOTE | 2017-08-19 08:43 | PCM.PN.OB ---
Patient Problems: Active and Suspected Problems Preeclampsia (Acute) Dichorionic diamniotic twin gestation (Acute) Gestational diabetes mellitus (Acute) Subjective: PPD#1 TWIN vaginal delivery, complicated by pp hemorrhage. Gestational diabetes, diet controlled Preeclampsia Doing well. Nursing . Baby boy not nursing as well as baby girl. Some cramping in low back. No PIH sx, no SCOTT. Objective: Lying semirecumbent in bed. Holding baby boy Enriquez draining prema appearing urine. QS - Physical Exam General: Alert, Oriented x3, Cooperative, No apparent distress Neck: Supple Abdomen: Soft - fundus firm at approx umbilicus (Balkri balloon in place) Bag with minimal blood noted. Neurological: Cranial nerves II-XII grossly intact Psych/Mental Status: Normal Affect Vital Signs Temp Pulse Resp BP Pulse Ox 99.7 F H 107 H 18 114/57 L 100 08/19/17 08:35 08/19/17 08:35 08/19/17 08:35 08/19/17 08:35 08/19/17 08:35 Oxygen Delivery Method Room Air Weight: 66.497 kg Body Mass Index (BMI) 24.3 Intake and Output for Last 24 Hours 08/17/17 08/18/17 08/19/17 23:59 23:59 23:59 Intake Total 1647 / 1647 1589 / 1589 1825 / 1825 Output Total 400 / 400 423 / 423 895 / 895 Balance 1247 / 1247 1166 / 1166 930 / 930 Laboratory Tests Past 24 Hrs 08/17/17 08/18/17 08/18/17 10:02 19:57 19:57 WBC 12.1 H RBC 3.05 L Hgb 9.7 L Hct 29.5 L MCV 96.7 MCH 31.8 MCHC 32.9 RDW 13.1 RDW Differential 45.4 H Plt Count 283 MPV 11.5 Immature Gran % (Auto) 0.200 Neut % (Auto) 82.4 H Lymph % (Auto) 13.5 L Hopkins % (Auto) 3.7 Eos % (Auto) 0.0 Baso % (Auto) 0.2 Absolute Neuts (auto) 10.0 H Absolute Lymphs (auto) 1.63 Total Counted Not Reportable Platelet Estimate ADEQUATE Anisocytosis RARE Macrocytosis RARE PT 14.4 INR 1.1 APTT 27.5 Fibrinogen 542 H Blood Type A POSITIVE Antibody Screen NEGATIVE Crossmatch See Detail 08/19/17 07:00 WBC 21.1 H RBC 2.77 L Hgb 8.7 L Hct 24.5 L MCV 88.4 MCH 31.4 MCHC 35.5 RDW 14.3 RDW Differential 45.6 H Plt Count 199 MPV 11.2 Immature Gran % (Auto) Neut % (Auto) Lymph % (Auto) Hopkins % (Auto) Eos % (Auto) Baso % (Auto) Absolute Neuts (auto) Absolute Lymphs (auto) Total Counted Platelet Estimate Anisocytosis Macrocytosis PT INR APTT Fibrinogen Blood Type Antibody Screen Crossmatch POC Glucose 08/19/17 08/18/17 08/18/17 05:42 22:48 18:40 POC Glucose 88 141 H 96 08/18/17 08/18/17 08/18/17 17:34 15:08 13:44 POC Glucose 88 78 77 08/18/17 08/18/17 08/18/17 13:24 13:03 10:38 POC Glucose 68 L 69 L 72 Assessment/Plan Active and Suspected Problems Preeclampsia (Acute) Dichorionic diamniotic twin gestation (Acute) Gestational diabetes mellitus (Acute) PPD#1 Vaginal twin delivery Hemorrhage. S/P D and C, medical management, then Balkri balloon placement. Balloon remains in place, minimal lochia noted. D/C Balkri balloon approx 1200 today. S/P pRBC transfusion. Hgb 8.7 gm/dl Repeat at 1130 am Leukocytosis Likely reactive repeat CBC today at 1130 Watch temps. Acute blood loss anemia Iron bid Preeclampsia Magnesium sulfate running. BPs wnl. Will d/c magnesium sulfate at 12+ hr since delivery D/C enriquez Watch BPs. Gestational diabetes stable on diet Continue diet, no need to check fingersticks Continue care.
--- NOTE | 2017-08-19 08:58 | PCM.PN.OB ---
Patient Problems: Active and Suspected Problems Preeclampsia (Acute) Dichorionic diamniotic twin gestation (Acute) Gestational diabetes mellitus (Acute) Subjective: PPD#1 Twin delivery, vaginal. PP hemorrhage S/P D and C, medical management, Balkri balloon in place. 2 units pRBCs given. Preeclampsia on Magnesium sulfate Doing OK. States baby girl nursing well, but son not as well. C/O cramping lower back Objective: Sitting up in bed holding sleeping baby boy NAD Enriquez draining prema urine, QS - Physical Exam General: Alert, Oriented x3, Cooperative, No apparent distress HEENT: Atraumatic Neck: Supple Abdomen: Soft - Fundus firm at umblilicus. Balkri balloon in place. Minimal blood in bag. Vital Signs Temp Pulse Resp BP Pulse Ox 99.7 F H 107 H 18 114/57 L 100 08/19/17 08:35 08/19/17 08:35 08/19/17 08:35 08/19/17 08:35 08/19/17 08:35 Oxygen Delivery Method Room Air Weight: 66.497 kg Body Mass Index (BMI) 24.3 Intake and Output for Last 24 Hours 08/17/17 08/18/17 08/19/17 23:59 23:59 23:59 Intake Total 1647 / 1647 1589 / 1589 1825 / 1825 Output Total 400 / 400 423 / 423 895 / 895 Balance 1247 / 1247 1166 / 1166 930 / 930 Laboratory Tests Past 24 Hrs 08/17/17 08/18/17 08/18/17 10:02 19:57 19:57 WBC 12.1 H RBC 3.05 L Hgb 9.7 L Hct 29.5 L MCV 96.7 MCH 31.8 MCHC 32.9 RDW 13.1 RDW Differential 45.4 H Plt Count 283 MPV 11.5 Immature Gran % (Auto) 0.200 Neut % (Auto) 82.4 H Lymph % (Auto) 13.5 L Vernon % (Auto) 3.7 Eos % (Auto) 0.0 Baso % (Auto) 0.2 Absolute Neuts (auto) 10.0 H Absolute Lymphs (auto) 1.63 Total Counted Not Reportable Platelet Estimate ADEQUATE Anisocytosis RARE Macrocytosis RARE PT 14.4 INR 1.1 APTT 27.5 Fibrinogen 542 H Blood Type A POSITIVE Antibody Screen NEGATIVE Crossmatch See Detail 08/19/17 07:00 WBC 21.1 H RBC 2.77 L Hgb 8.7 L Hct 24.5 L MCV 88.4 MCH 31.4 MCHC 35.5 RDW 14.3 RDW Differential 45.6 H Plt Count 199 MPV 11.2 Immature Gran % (Auto) Neut % (Auto) Lymph % (Auto) Vernon % (Auto) Eos % (Auto) Baso % (Auto) Absolute Neuts (auto) Absolute Lymphs (auto) Total Counted Platelet Estimate Anisocytosis Macrocytosis PT INR APTT Fibrinogen Blood Type Antibody Screen Crossmatch POC Glucose 08/19/17 08/18/17 08/18/17 05:42 22:48 18:40 POC Glucose 88 141 H 96 08/18/17 08/18/17 08/18/17 17:34 15:08 13:44 POC Glucose 88 78 77 08/18/17 08/18/17 08/18/17 13:24 13:03 10:38 POC Glucose 68 L 69 L 72 Assessment/Plan Active and Suspected Problems Preeclampsia (Acute) Dichorionic diamniotic twin gestation (Acute) Gestational diabetes mellitus (Acute) PPD #1 Vaginal delivery of Twin IUP PP hemorrhage. S/P D and C, Medical mgmt and Balkri balloon placement. S/P transfusion. Hgb 8.7 this am after 2 units pRBCs. Bleeding minimal, balloon remains in place. Remove approx at 1200 today. Leukocytosis Suspect reactive Repeat CBC 1130 Watch fever curves Acute Blood loss anemia Repeat CBC at 1130 Ferrous sulfate bid Preeclampsia 2/p 12 hr Magnesium Sulfate + BPs stable, clinically stable. D/C Magnesium sulfate D/C enriquez catheter Gestational Diabetes. Diet controlled during twin IUP No further monitoring at this point. Consider 6 wk 2hr GTT
[2017-08-19] MEDS: oxyCODONE 5 MG Tablet PO (09:00)
[2017-08-19] MEDS: Magnesium Sulfate 20 GM/500 ML BAG IV (10:23)
[2017-08-19] MEDS: Ferrous Sulfate 325 MG Tablet PO ×2 (10:24→17:49)
[2017-08-19] MEDS: Acetaminophen 500 MG Tablet 1000 MG PO (10:37)
[2017-08-19 12:56] LABS: Hematocrit 22.3 % (37-47); Hemoglobin 7.7 g/dl (12.0-15.0); Mean Corp Hgb Conc 34.5 g/gl (32-36); Mean Corpuscular Volume 89.9 fL (81-99); Mean Platelet Vol. 11.3 fl (6.2-12.0); Platelet Count 205 K/mm3 (150-450); RBC Distribution Width SD 43.3 fl (35.1-43.9); Red Blood Count 2.48 M/mm3 (4.2-5.4)
[2017-08-19 13:01] LABS: Scan Indicated on CBC? Y/N NO
--- NOTE | 2017-08-19 15:12 | PCM.PN.BLA ---
Progress Note Pt AVSS A and O lying in bed with visitors in room. NAD Visitors stepped out BALKRI balloon in place. No active bleeding noted. Dk blood in bag and some serous appearing fluid in tubing 360 cc inflation volume noted per OP note Syringe used to remove 180 cc of fluid No increase in bleeding noted at perineum. Fundus firm at inferior to umbilicus. Stable, return in 30 - 60 min to complete removal of Balkri balloon
--- NOTE | 2017-08-19 15:13 | NURSING ---
Dr Shultz in room to deflate ballon tampanode of 180 ml of NS; pt joycelyn well and no increase in bleeding noted; Dr Shultz to return to deflate remainder of fluid.
--- NOTE | 2017-08-19 16:40 | PCM.PN.BLA ---
Progress Note PPD#1 twins 1.) PP hemorrhage S/P med mgmt, D and C, Balkri balloon Stable bleeding. Balkri balloon fully deflated and removed. Minimal vaginal bleeding noted and uterine fundus firm NT at 2 cm inferior to umblicus ferrous sulfate bid 2.) Labia markedly swollen Continue ice pks and tucks prn Remove enriquez later, when labial edema improves further. 3.) acute blood loss ANEMIA Repeat CBC am 08/20/17 Ferrous sulfate bid 4.) Preeclampsia magnesium sulfate off BPs stable 5.) Leukocytosis improvement noted Repeat CBC am 08/20/17 Continue care. OK to d/c epidural catheter as stable.
[2017-08-20] VITALS (8 sets, daily range): BP systolic 128–141; BP diastolic 60–75; PULSE 83–114; RESP 14–20; TEMP 36.8–37.5; O2SAT 96–98
--- NOTE | 2017-08-20 01:30 | NURSING ---
ice pack applied to perineum
[2017-08-20] MEDS: 0.9% Saline Lock 10 ML Syringe IV ×3 (05:58→14:56)
--- NOTE | 2017-08-20 06:11 | NURSING ---
new tucks pads applied to perineum, have been alternating every several hours overnight
[2017-08-20 06:29] LABS: Hematocrit 18.5 % (37-47); Hemoglobin 6.3 g/dl (12.0-15.0); Mean Corp Hgb Conc 34.1 g/gl (32-36); Mean Corpuscular Volume 91.1 fL (81-99); Mean Platelet Vol. 10.2 fl (6.2-12.0); Platelet Count 192 K/mm3 (150-450); RBC Distribution Width SD 49.4 fl (35.1-43.9); Red Blood Count 2.03 M/mm3 (4.2-5.4); White Blood Count 13.9 K/mm3 (4.4-11.0)
[2017-08-20 06:39] LABS: Scan Indicated on CBC? Y/N NO
--- NOTE | 2017-08-20 07:33 | PCM.PN.OB ---
Patient Problems: Active and Suspected Problems Preeclampsia (Acute) Dichorionic diamniotic twin gestation (Acute) Gestational diabetes mellitus (Acute) Subjective: Denies headache, vision changes or abdominal pain. Lochia is scant. Had mild lightheadedness when out of bed yesterday. She is nursing both infants and they feed well. Objective: AVSS - Physical Exam General: Alert, Oriented x3, Cooperative, No apparent distress HEENT: Atraumatic, Normocephalic Lungs: Clear to auscultation, Normal air movement Cardiovascular: Regular rate, Regular Rhythm Abdomen: Soft, Non Tender, Non-Distended, - - Fundus firm and nontender at umbilicus, rectus diastasis, lochia scant, vulvar edema present Extremities: No Calf Tenderness, - - 1+ RLE edema, trace LLE edema Neurological: Neuro grossly intact Psych/Mental Status: Normal Affect, Appropriate, Alert and oriented to time, place, person, mood and affect Vital Signs Temp Pulse Resp BP Pulse Ox 98.9 F 83 16 138/67 H 94 08/20/17 01:46 08/20/17 01:46 08/20/17 01:46 08/20/17 01:46 08/19/17 20:19 Oxygen Delivery Method Room Air Weight: 66.497 kg Body Mass Index (BMI) 24.3 Intake and Output for Last 24 Hours 08/18/17 08/19/17 08/20/17 23:59 23:59 23:59 Intake Total 1589 / 1589 3620 / 3620 Output Total 423 / 423 3860 / 3860 2300 / 2300 Balance 1166 / 1166 -240 / -240 -2300 / -2300 Laboratory Tests Past 24 Hrs 08/19/17 08/19/17 08/20/17 07:00 12:30 06:02 WBC 21.1 H 19.0 H 13.9 H RBC 2.77 L 2.48 L 2.03 L Hgb 8.7 L 7.7 L 6.3 L Hct 24.5 L 22.3 L 18.5 L MCV 88.4 89.9 91.1 MCH 31.4 31.0 31.0 MCHC 35.5 34.5 34.1 RDW 14.3 14.0 15.0 H RDW Differential 45.6 H 43.3 49.4 H Plt Count 199 205 192 MPV 11.2 11.3 10.2 Assessment/Plan Active and Suspected Problems Preeclampsia (Acute) Dichorionic diamniotic twin gestation (Acute) Gestational diabetes mellitus (Acute) 22-year-old 1 [id number] PPD#2 s/p /VAVD for twins, complicated by hemorrhage, h/o preeclampsia s/p magnesium with resolution of symptoms and normalization of blood pressures. -Anemia: Will obtain orthostatics, T&C for additional transfusion, continue iron supplementation -Preeclampsia: BPs wnl, continue to monitor - -Routine care -Rh positive, Rubella non-immune - for MMR
[2017-08-20] MEDS: Dibucaine 30 GM Tube 1 APPLIC TOPICAL (08:24)
[2017-08-20] MEDS: Acetaminophen 500 MG Tablet 1000 MG PO ×2 (08:32→22:48)
[2017-08-20] MEDS: Ferrous Sulfate 325 MG Tablet PO ×2 (08:32→18:21)
[2017-08-20] MEDS: Senna/Docusate Sodium 1 Tablet PO (08:32)
--- NOTE | 2017-08-20 12:47 | NURSING ---
one unit of RBC being given as ordered
--- NOTE | 2017-08-20 15:47 | NURSING ---
at 1500 mina perez'kori for 800cc clear yellow urine and patient up ad arlet and in shower
[2017-08-20] MEDS: oxyCODONE 5 MG Tablet PO (20:10)
--- NOTE | 2017-08-20 23:53 | DCINST_ITS ---
Discharge Diet: No Restrictions Discharge Activity: Return to Normal Activity, May Shower, May Take a Tub Bath May resume sexual activity in: 6 weeks Lifting Restrictions: 20 lb Call your doctor if you observe: Fever of 101 or Higher, Inability to urinate, Inability to have a bowel movement, Using more than one pad per hour, Shortness of breath, Chest pain, Calf discomfort, Uncontrolled pain Cleanse incision/area with: Soap & Water Additional Instructions: If you experience any of the following, contact your healthcare provider. * Bleeding that soaks a pad every hour for 2 hours * Fever 100.4 or higher * Unrelieved incision or abdominal pain * Swelling, redness, discharge or bleeding from your incision or episiotomy site * Your incision begins to separate * Problems urinating (including inability to urinate or burning while urinating) . * Visual changes * Severe headache * Flu-like symptoms * Pain or redness in one of both of your breasts * Pain, warmth, tenderness or swelling in your legs, especially the calf area * Frequent nausea and vomiting * Symptoms of depression or anxiety If you experience any of the following, call 911 or go to the nearest Emergency Room. * Chest pain * Problems breathing * Seizure activity * Partial or complete paralysis of a body part, slurred speech, weakness or drooping of the face, or a sudden inability to walk or hold your balance Allergies/Adverse Reactions: Allergies No Known Allergies Allergy (Verified 08/04/17 11:38) Medications to take at Discharge Vits [Prenatabs FA] 1 tablet PO DAILY 07/21/17 Docusate Sodium [Colace] 100 mg PO BID PRN PRN #60 cap 08/20/17 Ibuprofen 600 mg PO TID PRN #30 tab 08/20/17 The following prescriptions were given: Docusate Sodium [Colace] 100 mg PO BID PRN PRN #60 cap PRN Reason: Constipation Ibuprofen 600 mg PO TID PRN #30 tab PRN Reason: Pain Orders to be completed after discharge: Electric breast pump Location: None Selected Please Follow Up With: Miriam Stanford MD When: 1-2 weeks and at 6 weeks Primary Care Physician: Jaswinder Cortez [Primary Care Provider] -
--- NOTE | 2017-08-20 23:54 | DS.PCM_ITS ---
Discharge Date and Diagnosis Date of Admission: 08/17/17 Date of Discharge: 08/21/17 - Primary Discharge Diagnosis Active and Suspected Problems Vacuum extractor delivery, delivered (Acute) (spontaneous vaginal delivery) (Acute) Preeclampsia (Acute) Dichorionic diamniotic twin gestation (Acute) Gestational diabetes mellitus (Acute) Hospital Course and Treatment Operations: None Procedures: None Summary of Care Provided: The patient is a 22 year old F 1 admitted at 36 3/7 weeks gestation with preeclampsia with severe features, gestational diabetes mellitus with dichorionic diamnionic twin gestation for induction of labor. The had an of twin A followed by VAVD for twin B with episiotomy. The delivery was complicated by hemorrhage. Banjo curettage was performed and Bakri balloon placed. She received 2 U of packed RBC. The Bakri was removed on day #1. She received a third unit of packed RBC on day # 2. She was out of bed, ambulating and . She was discharged to home on day #3. Discharge Diet: No Restrictions Discharge Activity: Return to Normal Activity, May Shower, May Take a Tub Bath May resume sexual activity in: 6 weeks Call your doctor if you observe: Fever of 101 or Higher, Inability to urinate, Inability to have a bowel movement, Using more than one pad per hour, Shortness of breath, Chest pain, Calf discomfort, Uncontrolled pain Cleanse incision/area with: Soap & Water Home Medications: Medications to take at Discharge Vits [Prenatabs FA] 1 tablet PO DAILY 07/21/17 Docusate Sodium [Colace] 100 mg PO BID PRN PRN #60 cap 08/20/17 Ibuprofen 600 mg PO TID PRN #30 tab 08/20/17 Following Prescrptions Were Given to Patient: Docusate Sodium [Colace] 100 mg PO BID PRN PRN #60 cap PRN Reason: Constipation Ibuprofen 600 mg PO TID PRN #30 tab PRN Reason: Pain Other Amb Orders: Electric breast pump Location: None Selected Primary Care Physician: Jaswinder Cortez [Primary Care Provider] - Please Follow Up With: Miriam Stanford MD Meaningful Use Info Meaningful Use Diagnoses (Choose all that apply): None applicable
[2017-08-21 02:00] VITALS: BP 133/68; PULSE 94; RESP 16; TEMP 36.7
[2017-08-21 05:29] LABS: Absolute Nucleated RBC Count 0.06 10^3/uL (0-5); NRBC Flagged by Analyzer 0.5 % (0-5)
[2017-08-21 05:42] LABS: Hematocrit 21.6 % (37-47); Hemoglobin 7.3 g/dl (12.0-15.0); Mean Corp Hgb Conc 33.8 g/gl (32-36); Mean Corpuscular Hgb 31.1 pg (27.0-32.0); Mean Corpuscular Volume 91.9 fL (81-99); Mean Platelet Vol. 10.1 fl (6.2-12.0); Platelet Count 206 K/mm3 (150-450); RBC Distribution Width CV 14.8 % (11.6-14.6); RBC Distribution Width SD 48.9 fl (35.1-43.9); Red Blood Count 2.35 M/mm3 (4.2-5.4); Scan Indicated on CBC? Y/N NO; White Blood Count 12.8 K/mm3 (4.4-11.0)
[2017-08-21 07:30] VITALS: BP 144/89; PULSE 100; RESP 18; TEMP 36.9; O2SAT 98
[2017-08-21] MEDS: Ferrous Sulfate 325 MG Tablet PO (07:45)
[2017-08-21] MEDS: Acetaminophen 500 MG Tablet 1000 MG PO (07:45)
[2017-08-21 14:30] VITALS: BP 146/86; PULSE 110; RESP 18; TEMP 37.2
--- NOTE | 2017-08-21 20:12 | PCM.PN.OB ---
Subjective: No issues overnight. Denies dizziness or lightheadedness. Lochia is scant. She feels well. Objective: avss - Physical Exam General: Alert, Oriented x3, Cooperative, No apparent distress HEENT: Atraumatic, Normocephalic Lungs: Clear to auscultation, Normal air movement Cardiovascular: Regular rate, Regular Rhythm, Normal S1, Normal S2 Abdomen: Soft, Non Tender, Non-Distended, - - Fundus firm and nontender Extremities: No Calf Tenderness, - - +1 b/l LE edema Neurological: Neuro grossly intact Psych/Mental Status: Normal Affect, Appropriate, Alert and oriented to time, place, person, mood and affect Vital Signs Temp Pulse Resp BP Pulse Ox 99 F 110 H 18 146/86 H 98 08/21/17 14:30 08/21/17 14:30 08/21/17 14:30 08/21/17 14:30 08/21/17 07:30 Oxygen Delivery Method Room Air Weight: 66.497 kg Body Mass Index (BMI) 24.3 Intake and Output for Last 24 Hours 08/19/17 08/20/17 08/21/17 23:59 23:59 23:59 Intake Total 3620 / 3620 800 / 800 Output Total 3860 / 3860 4850 / 4850 Balance -240 / -240 -4050 / -4050 Laboratory Tests Past 24 Hrs 08/21/17 05:10 WBC 12.8 H RBC 2.35 L Hgb 7.3 L Hct 21.6 L MCV 91.9 MCH 31.1 MCHC 33.8 RDW 14.8 H RDW Differential 48.9 H Plt Count 206 MPV 10.1 Nucleated RBC % 0.5 Absolute Retic 0.06 Assessment/Plan 22-year-old 1P 0101 PPD#3 s/p /VAVD for twins h/o preeclampsia doing well. -d/c home
== END 2017-08-21 16:50 | disposition home or self-care (01) | DRG 768 ==
PROVIDERS: Obstetrics & Gynecology; Admitting Provider Obstetrics & Gynecology; Family Provider Family Medicine; PCP Family Medicine; Visit Provider Obstetrics & Gynecology
DX: O14.13 Severe pre-eclampsia, third trimester (principal); O60.14X1 Preterm labor third trimester with preterm delivery third trimester, fetus 1; O60.14X2 Preterm labor third trimester with preterm delivery third trimester, fetus 2; O24.420 Gestational diabetes mellitus in childbirth, diet controlled; O72.2 Delayed and secondary postpartum hemorrhage; D62 Acute posthemorrhagic anemia; Z37.2 Twins, both liveborn; O30.043 Twin pregnancy, dichorionic/diamniotic, third trimester; O69.1XX2 Labor and delivery complicated by cord around neck, with compression, fetus 2; O70.1 Second degree perineal laceration during delivery; O99.824 Streptococcus B carrier state complicating childbirth; O90.81 Anemia of the puerperium; O99.89 Other specified diseases and conditions complicating pregnancy, childbirth and the puerperium; D72.829 Elevated white blood cell count, unspecified; Z3A.36 36 weeks gestation of pregnancy
CPT/HCPCS: 36415; 59025; 59050; 76815; 82565; 82570; 82962; 84156; 84450; 84460; 84550; 85025; 85027; 85384; 85610; 85730; 86850; 86900; 86920; 86922; 93460; 99218; J7040; J7120; P9016; A4216; G0378; J2405

== ENCOUNTER → 2018-11-12 14:06 | Outpatient (CLI) | payer OTHER, SELFPAY ==
[2018-11-12 14:06] VITALS: BMI 23.4
[2018-11-12 15:51] LABS: Absolute Lymphocyte Count 1.44 X10^3/ul (0.83-4.51); Absolute Neutrophil Count 6.9 X10^3/uL (2.0-7.7); Basophil# 0.02 X10^3/uL; Basophil% 0.2 % (0-1); Eosinophil# 0.09 X10^3/uL; Hematocrit 36.7 % (37-47); Hemoglobin 12.5 g/dl (12.0-15.0); Lymphocyte # 1.44 X10^3/ul (4.0); Lymphocyte % 15.8 % (19-41); Mean Corp Hgb Conc 34.1 g/gl (32-36); Mean Corpuscular Hgb 30.8 pg (27.0-32.0); Mean Corpuscular Volume 90.4 fL (81-99); Mean Platelet Vol. 10.4 fl (6.2-12.0); Monocyte# 0.57 X10^3/uL; Monocyte% 6.3 % (0-10); Neutrophil # 6.93 X10^3/uL (2.7-7.7); Neutrophil % 76.3 % (47-70); Platelet Count 295 K/mm3 (150-450); RBC Distribution Width CV 13.5 % (11.6-14.6); RBC Distribution Width SD 43.7 fl (35.1-43.9); Red Blood Count 4.06 M/mm3 (4.2-5.4); White Blood Count 9.1 K/mm3 (4.4-11.0)
[2018-11-12 15:54] LABS: Color, Urine Yellow (Yellow); Glucose, Dipstick Normal (Normal); Ketone-Dipstick Negative (Negative); Leukocyte Esterase-Dipstick Negative /ul (Negative); Nitrite-Dipstick Negative (Negative); Occult Blood-Urine Negative /ul (Negative); Protein-Dipstick Negative (Negative); Specific Gravity, Urine 1.015 (1.002-1.030); Urine Bilirubin Dipstick Negative (Negative); Urine Clarity Sl. Cloudy (Clear); Urine Urobilinogen Normal (Normal)
[2018-11-12 15:57] LABS: POSITIVE COUNT NO; POSITIVE DIFFERENTIAL NO; POSITIVE MORPHOLOGY NO
[2018-11-12 16:09] LABS: Thyroid Stim Hormone (TSH) 0.81 uIU/mL (0.358-3.74)
[2018-11-12 16:49] LABS: HIV - WCH Non-Reactive (Nonreactive)
[2018-11-12 17:36] LABS: Chlamydia Trachomatis by PCR Negative (Negative); Neisserai gonorrhoeae by PCR Negative (Negative); Probe Check PASS; Sample Adequacy Control PASS; Specimen Processing Control PASS
[2018-11-15 09:48] LABS: HEPATITIS B SURFACE AG Negative (Negative); Hep C Antibodies 0.1 s/co ratio (0.0-0.9)
[2018-11-18 08:25] LABS: HPV Reflexed? NOT INDICATED
[2018-11-19 03:31] LABS: Prenatal RPR NONREACTIVE (NONREACTIVE)
== END ==
PROVIDERS: Visit Provider Obstetrics & Gynecology
DX: Z34.82 Encounter for supervision of other normal pregnancy, second trimester (principal); Z12.4 Encounter for screening for malignant neoplasm of cervix; Z11.3 Encounter for screening for infections with a predominantly sexual mode of transmission
CPT/HCPCS: 36415; 81002; 84443; 85025; 86703; 86762; 86803; 87340; 87491; 87591; 87624; 88175; G0145

== ENCOUNTER → 2019-01-12 13:30 | Outpatient (CLI) | payer OTHER, SELFPAY ==
[2018-11-12 14:06] VITALS: BMI 23.4
[2019-01-12 15:46] LABS: Hematocrit 34.1 % (37-47); Hemoglobin 11.4 g/dL (12.0-15.0); Mean Corp Hgb Conc 33.4 g/dL (32-36); Mean Corpuscular Volume 92.7 fL (81-99); Mean Platelet Vol. 10.1 fl (6.2-12.0); Platelet Count 288 K/mm3 (150-450); RBC Distribution Width SD 40.8 fl (35.1-43.9); Red Blood Count 3.68 M/mm3 (4.2-5.4)
[2019-01-12 15:51] LABS: Glucose Challenge Gest 1H 50g 122 mg/dL (70-140)
[2019-01-13 14:36] LABS: Ferritin 6 ng/mL (8-252)
== END ==
PROVIDERS: Visit Provider Obstetrics & Gynecology
DX: O99.019 Anemia complicating pregnancy, unspecified trimester (principal); D64.9 Anemia, unspecified; Z3A.00 Weeks of gestation of pregnancy not specified
CPT/HCPCS: 36415; 82728; 82950; 85027

== ENCOUNTER 2019-02-24 15:05 | Inpatient (IN) | payer SELFPAY ==
[2018-11-12 14:06] VITALS: BMI 23.4
[2019-02-24] VITALS (12 sets, daily range): BP systolic 109–134; BP diastolic 60–78; PULSE 66–94; RESP 18; TEMP 36.2–36.4; O2SAT 96–100; BMI 28.1
--- NOTE | 2019-02-24 15:31 | PCM.HP.OB ---
- Problem List (1) 36 weeks gestation of Status: Acute (2) Placenta previa Status: Acute Qualifiers: Trimester: third trimester Qualified Code(s): O44.03 - Complete placenta previa NOS or without hemorrhage, third trimester History Date of Admission: 08/17/17 Final YARON: 03/23/19 Final YARON Source: US <20 weeks Gestational age: 36 Weeks and 3 Days History of this : This is a 23 year-old, G [2], P [0102], at 36 1/7 weeks gestational age presenting for scheduled section for placenta previa. She reported persistent spotting and cervix was noted 1cm dilation on sterile speculum exam in office. Contractions q2-10 minutes. No leaking of fluid. + FM, but decreased. She had betamethasone 02/10/19-02/11/19. Medical History: Medical History (Last Updated 02/24/19 @ 15:52 by Miriam Stanford MD) History of blood transfusion Z92.89 2018 - hemorrhage Allergies No Known Allergies Allergy (Verified 02/24/19 15:21) Home Medications: Home Medications Vits [Prenatabs FA ] 1 tablet PO DAILY 07/21/17 Ibuprofen [Motrin] 600 mg PO Q8H PRN PRN #30 tab 02/26/19 Oxycodone [Oxyir] 1 tab PO Q6H PRN PRN 7 Days #5 tab 02/26/19 Smoking Status: Never smoker Alcohol: None Number of Fetus(es): 1 NST - FHR Rate Baby A Baseline: 140 Variability:: Moderate Accelerations:: 15 x 15 Decelerations:: None NST Reactive:: Yes FHR Category:: Category I Uterine Activity:: 2-5/10 min History Past Pregnancies: Past Pregnancies Delivery Date Name GA/Weeks Outcome Route Weight Infant Gender Labor Length Anesthesia Delivery Location Provider FOB 08/18/17 Brandie Silva 36 weeks Living /VAVD 2597g/2690g M/F 12 Epidural [facility] Maranda Middleton Labs: Mom's Problem List Problem Status Onset Code 36 weeks gestation of Acute Z3A.36 Placenta previa Acute O44.00 Course Did the patient receive Yes care? Labs Blood Type: A RH: POSITIVE RPR/VDRL/Syphilis Nonreactive Rubella status Immune HbSAg Negative Date Done: 11/12/18 Chlamydia Negative Gonorrhea Negative HIV/AIDS Non-Reactive Group B Strep: Not Done Current Obstetrical History Gestational Diabetes No Incompetent Cervix No Infertility No IUGR No Macrosomia No Hypertension/Pre-eclampsia No Placenta Previa/Abruption Yes: complete previa PTL/PROM No Uterine anomaly No Oligohydramnios No Polyhydramnios No Multiple gestation No Past Medical History Asthma No Diabetes No Hypertension No Heart disease No Mitral valve prolapse No Neurologic/Seizure disorder/ No Migraines Kidney disease No Liver disease No Varicosities Yes: legs Clotting disorders/Hx of DVT No Thyroid Dysfunction No Other medical diseases No Psychiatric disorders No Major trauma No Abnormal PAP smear No Sleep apnea No Mammogram in the last 2 years No Social History Marital Status: Alleged father Kane Pinzon Hx Smoking No Smoking Status Never smoker Expected Infant Delivery Method: Scheduled Section Number of Visits: 6 Physical Exam General: Alert, Oriented x3, Cooperative, No apparent distress HEENT: Atraumatic, Normocephalic Abdomen: Soft, Non Tender, Gravid Extremities:: No edema, No tenderness/swelling Neurological: Neuro grossly intact REQUIREMENTS MANAGER: Normal external genitalia Estimated gestational size: Appropriate for gestational size Presentation: Cephalic Cervix Dilation (cm): 1 - visually on SSE Assessment/Plan All Active Problems (Last Updated 02/24/19 @ 15:52 by Miriam Stanford MD) 36 weeks gestation of (Acute) Placenta previa (Acute) Gestational diabetes mellitus (Resolved) (spontaneous vaginal delivery) (Resolved) Vacuum extractor delivery, delivered (Resolved) This is a 23 year-old, G [2], P [0102], at 36 1/7 weeks gestational age with placenta previa in latent labor for section. -Consents signed -T&C x 2 U PRBC
[2019-02-24] MEDS: Lactated Ringers 1,000 ML 999 ML IV (15:40)
[2019-02-24] MEDS: 0.9% Saline Lock 10 ML Syringe IV (15:55)
[2019-02-24 16:04] LABS: Absolute Lymphocyte Count 1.71 X10^3/uL (0.83-4.51); Absolute Neutrophil Count 4.9 X10^3/uL (2.0-7.7); Basophil# 0.02 X10^3/uL; Basophil% 0.3 % (0-1); Eosinophil# 0.06 X10^3/uL; Eosinophils% 0.8 % (0-5); Hematocrit 35.5 % (37-47); Hemoglobin 11.8 g/dL (12.0-15.0); Lymphocyte # 1.71 X10^3/ul (4.0); Lymphocyte % 23.4 % (19-41); Mean Corp Hgb Conc 33.2 g/dL (32-36); Mean Corpuscular Hgb 30.2 pg (27.0-32.0); Mean Corpuscular Volume 90.8 fL (81-99); Mean Platelet Vol. 10.7 fl (6.2-12.0); Monocyte# 0.62 X10^3/uL; Monocyte% 8.5 % (0-10); NRBC Flagged by Analyzer 0 % (0-5); Neutrophil # 4.86 X10^3/uL (2.7-7.7); Neutrophil % 66.3 % (47-70); Platelet Count 282 K/mm3 (150-450); RBC Distribution Width CV 13.2 % (11.6-14.6); RBC Distribution Width SD 42.7 fl (35.1-43.9); Red Blood Count 3.91 M/mm3 (4.2-5.4); White Blood Count 7.3 K/mm3 (4.4-11.0)
[2019-02-24] MEDS: Lactated Ringers 1,000 ML 150 ML IV (16:20)
[2019-02-24 16:59] LABS: Partial Thromboplast Time 26.4 Seconds (24.1-36.2)
[2019-02-24] MEDS: Sodium Citrate/Citric Acid 30 ML UDC PO (18:09)
[2019-02-24] MEDS: Cefazolin 2 GM in 0.9% Normal Saline 100 ML IV (18:09)
[2019-02-24] MEDS: Methylergonovine 0.2 MG/ML Ampul IM (18:47)
--- NOTE | 2019-02-24 19:19 | PCM.OPRPT ---
<Rod Camarillo - Last Filed: 02/24/19 19:19> Delivery Classification: ART Final YARON: 03/23/19 Final YARON Source: US <20 weeks Gestational age: 36 Weeks and 1 Days doctor who attended delivery (if requested by OB): Irina Michael - Placenta previa machine taper: Rod Camarillo Type of Anesthesia:: Spinal - With Duramorph Implants Used: None Date of Procedure: 02/24/19 Pre-Operative Diagnosis: Placenta Previa at 36 Weeks Gestation with Early Labor and Active Vaginal Bleeding Post-Operative Diagnosis: Placenta Previa at 36 Weeks Gestation with Early Labor and Active Vaginal Bleeding Description of Procedure: Surgeon: Katelin Stanford MD, FACOG Anesthesia: Kevin Clarke CRNA Anesthesia: Spinal with Duramorph Procedure: Primary Low Transverse Cervical Caesarean Section Findings: Viable male infant with Apgars of 8/9 in caput posterior presentation with clear amniotic fluid and normal three-vessel placenta and cord around the neck x1 loose. Indication: This is a 23-year-old who presents for her first at 36+ weeks gestation. care has otherwise been uneventful. The patient has been counseled regarding the risk and indications of this procedure including the possibility of bleeding infection and injury to surrounding structures such as bowel bladder. All questions were answered. Procedure: Patient was taken to the operating room where after spinal anesthesia was placed, the patient was prepped and draped in usual sterile fashion and a Stuart catheter was placed. The abdomen was entered through a Pfannenstiel incision and peritoneum was entered bluntly. After developing a bladder flap on the lower uterine segment a low transverse incision was made on the uterus and head was easily delivered onto the operative field the nose mouth and oropharynx were bulb suctioned. Subsequently a viable male was born with Apgars of 8/9. The was noted to cry move all extremities vigorously on the operative field. The umbilical cord was doubly clamped and ligated and infant handed to the nursery personnel who were present for the delivery. Placenta was delivered and noted to be 3 vessels and normal. Uterus was exteriorized and remaining placental tissue was removed. The uterus was then closed in 2 layers first with running locked 0 Vicryl suture followed by a second imbricating layer with 0 Vicryl suture. 0 Vicryl suture was then used in a horizontal mattress interrupted fashion to affect final hemostasis of the uterine incision line. Normal fallopian tubes and ovaries were visualized and the uterus was returned to the pelvis. Hemostasis was noted and rectus abdominis muscles were reapproximated in the midline with interrupted Number 0 Vicryl suture in a horizontal mattress fashion. Fascia was closed with running Number 1 PDS Strata fix suture. Skin was closed with 4-0 monocryl suture in a running subcuticular fashion. Steri strips and Mepilex were placed across the incision. The patient tolerated the procedure well and was taken to the recovery room in satisfactory condition. Sponge, needle, and instrument counts were all reportedly correct. EBL was 1400 cc. Ancef 2 gms IV was given prior to the procedure. Spicemen to Pathology: Placenta Complications: None <Miriam Stanford - Last Filed: 02/24/19 19:48> Problem List (1) 36 weeks gestation of Status: Acute (2) Placenta previa Status: Acute Qualifiers: Trimester: third trimester Qualified Code(s): O44.03 - Complete placenta previa NOS or without hemorrhage, third trimester Delivery Indications: 23yo at 36 1/7 wga with complete placenta previa with c/o persistent spotting and painful contractions. Indications for : Placenta Previa Description of Procedure: Primary Low Transvere Caesarean Section performed Amniotic Membrane Rupture Type: Artificial Amniotic Fluid Description: Clear Placenta Disposition: [facility] Drain: Stuart to straight drain Fluids Replaced: 1500 ml Cord Entanglement: Around neck x 1, loose Nuchal Cord Compression: Without compression Cord Vessel Description: 3 Vessels Esitmated Blood Loss (ml): 1400 Gender: Male (1 minute): 8 (5 minute): 9 Delayed cord clamping: Yes Antibiotic Given: Ancef 2 grams IV x1 Pt instructed on risks of surgery: Bleeding, Anesthesia Risks, Infection, Injury to surrounding structure(s) including bowel and bladder Complications: None - Admit VTE Documentation VTE Present on Admission: No VTE Mechan Device Prophylaxis: SCD's VTE Pharm Prophylaxis ordered?: No
[2019-02-24] MEDS: Oxytocin 30 units/NS 500 ml 30 UNITS/500 ML IV.SOLN 167 UNITS IV (19:35)
[2019-02-24] MEDS: Lactated Ringers 1,000 ML 100 ML IV (22:35)
[2019-02-25] VITALS (17 sets, daily range): BP systolic 92–118; BP diastolic 47–69; PULSE 65–83; RESP 16–18; TEMP 36.2–36.8; O2SAT 96–100
[2019-02-25] MEDS: Ketorolac 30 MG/ML Syringe IV ×4 (00:26→19:11)
--- NOTE | 2019-02-25 01:46 | NURSING ---
Dr Camarillo updated on pts status including dizziness when upright in bed, pulse 80's, BP 109/60, UO WNL. Pt has moderate rubra lochia, minimal drainage on dressing. EBL 1400. Will check CBC in AM as previously ordered and continue to monitor pt.
[2019-02-25] MEDS: Cefazolin 1 GM/50 ML BAG IV ×2 (02:28→11:12)
[2019-02-25 06:17] LABS: Hematocrit 30.4 % (37-47); Hemoglobin 10.1 g/dL (12.0-15.0); Mean Corp Hgb Conc 33.2 g/dL (32-36); Mean Corpuscular Hgb 30.1 pg (27.0-32.0); Mean Corpuscular Volume 90.7 fL (81-99); Mean Platelet Vol. 10.5 fl (6.2-12.0); Platelet Count 225 K/mm3 (150-450); RBC Distribution Width CV 13.2 % (11.6-14.6); RBC Distribution Width SD 42.7 fl (35.1-43.9); Red Blood Count 3.35 M/mm3 (4.2-5.4); White Blood Count 8.6 K/mm3 (4.4-11.0)
--- NOTE | 2019-02-25 09:01 | PCM.PN.OB ---
Patient Problems: Active and Suspected Problems (Last Updated 02/24/19 @ 15:52 by Miriam Stanford MD) 36 weeks gestation of (Acute) Placenta previa (Acute) Subjective: No issues overnight. No nausea or vomiting. Tolerates a regular diet. No flatus. Denies heavy lochia. Infant, Gómez Lowery, is nursing well. Objective: AVSS - Physical Exam General: Alert, Oriented x3, Cooperative, No apparent distress HEENT: Atraumatic, Normocephalic Lungs: Clear to auscultation, Normal air movement Cardiovascular: Regular rate, Regular Rhythm, Normal S1, Normal S2 Abdomen: Bowel Sounds Present, Soft, Non Tender, Non-Distended, - - fundus firm and nontender, incisional dressing with approximately 25% saturation Extremities: No edema, No Calf Tenderness Neurological: Neuro grossly intact Psych/Mental Status: Normal Affect, Appropriate, Alert and oriented to time, place, person, mood and affect Vital Signs Temp Pulse Resp BP Pulse Ox 98.3 F 76 18 97/52 L 97 02/25/19 08:00 02/25/19 08:00 02/25/19 08:00 02/25/19 08:00 02/25/19 08:00 Oxygen Delivery Method Room Air Weight: 65.4 kg Body Mass Index (BMI) 28.1 Intake and Output for Last 24 Hours 02/23/19 02/24/19 02/25/19 23:59 23:59 23:59 Intake Total 3505 / 3505 898.34 / 898.34 Output Total 1050 / 1050 900 / 900 Balance 2455 / 2455 -1.66 / -1.66 Laboratory Tests Past 24 Hrs 02/24/19 02/24/19 02/24/19 15:30 15:30 15:32 WBC 7.3 RBC 3.91 L Hgb 11.8 L Hct 35.5 L MCV 90.8 MCH 30.2 MCHC 33.2 RDW Std Deviation 42.7 RDW Coeff of Shannan 13.2 Plt Count 282 MPV 10.7 Immature Gran % (Auto) 0.700 Neut % (Auto) 66.3 Lymph % (Auto) 23.4 [place] % (Auto) 8.5 Eos % (Auto) 0.8 Baso % (Auto) 0.3 Absolute Neuts (auto) 4.9 Absolute Lymphs (auto) 1.71 Nucleated RBC % 0 APTT 26.4 Blood Type A POSITIVE Antibody Screen NEGATIVE Crossmatch See Detail 02/25/19 06:00 WBC 8.6 RBC 3.35 L Hgb 10.1 L Hct 30.4 L MCV 90.7 MCH 30.1 MCHC 33.2 RDW Std Deviation 42.7 RDW Coeff of Shannan 13.2 Plt Count 225 MPV 10.5 Immature Gran % (Auto) Neut % (Auto) Lymph % (Auto) [place] % (Auto) Eos % (Auto) Baso % (Auto) Absolute Neuts (auto) Absolute Lymphs (auto) Nucleated RBC % APTT Blood Type Antibody Screen Crossmatch Medical Necessity - Tobacco Use Smoking Status: Never smoker Assessment/Plan All Active Problems (Last Updated 02/24/19 @ 15:52 by Miriam Stanford MD) 36 weeks gestation of (Acute) Placenta previa (Acute) Gestational diabetes mellitus (Resolved) (spontaneous vaginal delivery) (Resolved) Vacuum extractor delivery, delivered (Resolved) This is a 23 year-old, G [2], P [0203] POD#1 s/p PLTCS doing well. A positive Routine postop care
[2019-02-25] MEDS: Acetaminophen 500 MG Tablet 1000 MG PO ×2 (12:20→22:29)
[2019-02-25] MEDS: 0.9% Saline Lock 10 ML Syringe IV ×2 (12:20→19:12)
[2019-02-26] MEDS: Ketorolac 30 MG/ML Syringe IV ×2 (00:50→05:27)
[2019-02-26] MEDS: 0.9% Saline Lock 10 ML Syringe IV ×3 (00:51→12:19)
[2019-02-26 01:40] VITALS: BP 123/68; PULSE 88; RESP 16; TEMP 37.2; O2SAT 99
--- NOTE | 2019-02-26 03:21 | DCINST_ITS ---
Discharge Diet: No Restrictions Discharge Activity: Return to Normal Activity, May Not Drive, May not drive while taking narcotic pain medications., May Shower, - - No tub bath May resume sexual activity in: 4-6 weeks Lifting Restrictions: 10 lb Suture Line Care: Avoid Pulling/Pushing Remove Dressing in (days):: 2 - Wet tape strips and remove Cleanse incision/area with: Soap & Water Additional Instructions: If you experience any of the following, contact your healthcare provider. * Bleeding that soaks a pad every hour for 2 hours * Fever 100.4 or higher * Unrelieved incision or abdominal pain * Swelling, redness, discharge or bleeding from your incision or episiotomy site * Your incision begins to separate * Problems urinating (including inability to urinate or burning while urinating). * Visual changes * Severe headache * Flu-like symptoms * Pain or redness in one of both of your breasts * Pain, warmth, tenderness or swelling in your legs, especially the calf area * Frequent nausea and vomiting * Symptoms of depression or anxiety If you experience any of the following, call 911 or go to the nearest Emergency Room. * Chest pain * Problems breathing * Seizure activity * Partial or complete paralysis of a body part, slurred speech, weakness or drooping of the face, or a sudden inability to walk or hold your balance You may use a stool softener available over the counter at the drug store if you have constipation. Allergies/Adverse Reactions: Allergies No Known Allergies Allergy (Verified 02/24/19 15:21) Medications to take at Discharge Vits [Prenatabs FA ] 1 tablet PO DAILY 07/21/17 Ibuprofen [Motrin] 600 mg PO Q8H PRN PRN #30 tab 02/26/19 Oxycodone [Oxyir] 1 tab PO Q6H PRN PRN 7 Days #5 tablet 02/26/19 The following prescriptions were given: Ibuprofen [Motrin] 600 mg PO Q8H PRN PRN #30 tab PRN Reason: Mild Pain (1-08/22) Transmission Status: Received by [facility]/pharmacy #[id number] Oxycodone [Oxyir] 1 tab PO Q6H PRN PRN 7 Days #5 tablet PRN Reason: Mod-Severe Pain (-03/24) Transmission Status: Received by [facility]/pharmacy #[id number] Follow-Up: Call to make an appointment with your doctor for an incision check in 1-2 weeks. You will also need a 6 week post- follow up appointment. Test results from this visit will be discussed in further detail at your follow- up appointment, if applicable. Please Follow Up With: Miriam Stanford MD When: 1-2 weeks Primary Care Physician: Care Physician,No Primary [Primary Care Provider] -
--- NOTE | 2019-02-26 07:57 | PCM.PN.OB ---
Patient Problems: Active and Suspected Problems (Last Updated 02/24/19 @ 15:52 by Miriam Stanford MD) 36 weeks gestation of (Acute) Placenta previa (Acute) Subjective: No issues overnight. Passing flatus, OOB, ambulating and voiding without difficulty. Pain controlled, denies heavy lochia. Objective: AVSS - Physical Exam General: Alert, Oriented x3, Cooperative, No apparent distress HEENT: Atraumatic, Normocephalic Lungs: Clear to auscultation, Normal air movement Cardiovascular: Regular rate, Regular Rhythm, Normal S1, Normal S2 Abdomen: Bowel Sounds Present, Soft, Non Tender, Non-Distended, - - Fundus firm and nontender, incisional dressing approximately 25% saturated Extremities: No edema, No Calf Tenderness Neurological: Neuro grossly intact Psych/Mental Status: Normal Affect, Appropriate, Alert and oriented to time, place, person, mood and affect Vital Signs Temp Pulse Resp BP Pulse Ox 98.9 F 88 16 123/68 H 99 02/26/19 01:40 02/26/19 01:40 02/26/19 01:40 02/26/19 01:40 02/26/19 01:40 Oxygen Delivery Method Room Air Weight: 65.4 kg Body Mass Index (BMI) 28.1 Intake and Output for Last 24 Hours 02/24/19 02/25/19 02/26/19 23:59 23:59 23:59 Intake Total 3505 / 3505 1215.01 / 1215.01 Output Total 1050 / 1050 2400 / 2400 Balance 2455 / 2455 -1184.99 / -1184.99 Medical Necessity - Tobacco Use Smoking Status: Never smoker Assessment/Plan All Active Problems (Last Updated 02/24/19 @ 15:52 by Miriam Stanford MD) 36 weeks gestation of (Acute) Placenta previa (Acute) Gestational diabetes mellitus (Resolved) (spontaneous vaginal delivery) (Resolved) Vacuum extractor delivery, delivered (Resolved) This is a 23 year-old, G [2], P [0203] POD#2 s/p PLTCS for previa doing well. -Repeat CBC today -Routine postop care -May d/c this evening if blood counts stable and pt desires.
[2019-02-26 09:04] LABS: Absolute Lymphocyte Count 1.75 X10^3/uL (0.83-4.51); Absolute Neutrophil Count 6.4 X10^3/uL (2.0-7.7); Basophil# 0.03 X10^3/uL; Basophil% 0.3 % (0-1); Eosinophil# 0.12 X10^3/uL; Eosinophils% 1.3 % (0-5); Hemoglobin 10.6 g/dL (12.0-15.0); Lymphocyte # 1.75 X10^3/ul (4.0); Lymphocyte % 19.5 % (19-41); Mean Corp Hgb Conc 33.1 g/dL (32-36); Mean Corpuscular Volume 93.6 fL (81-99); Mean Platelet Vol. 10.4 fl (6.2-12.0); Monocyte# 0.68 X10^3/uL; Monocyte% 7.6 % (0-10); NRBC Flagged by Analyzer 0 % (0-5); Neutrophil # 6.35 X10^3/uL (2.7-7.7); Neutrophil % 70.6 % (47-70); Platelet Count 296 K/mm3 (150-450); RBC Distribution Width CV 13.7 % (11.6-14.6); Red Blood Count 3.42 M/mm3 (4.2-5.4)
[2019-02-26 09:29] VITALS: BP 121/73; PULSE 82; RESP 16; TEMP 36.7; O2SAT 100
[2019-02-26] MEDS: Ibuprofen 600 MG Tablet PO ×2 (12:29→18:34)
[2019-02-26 15:06] VITALS: BP 104/63; PULSE 78; RESP 16; TEMP 36.7; O2SAT 99
[2019-02-26] MEDS: Acetaminophen 500 MG Tablet 1000 MG PO (15:22)
[2019-02-26] MEDS: oxyCODONE 5 MG Tablet PO (18:21)
== END 2019-02-26 19:00 | disposition home or self-care (01) | DRG 786 ==
PROVIDERS: Obstetrics & Gynecology; Admitting Provider Obstetrics & Gynecology; Referring Provider Obstetrics & Gynecology; Visit Provider Obstetrics & Gynecology
PROC: (CPT 59514; principal; 2019-02-24 17:45)
DX: O44.03 Complete placenta previa NOS or without hemorrhage, third trimester (principal); O60.14X0 Preterm labor third trimester with preterm delivery third trimester, not applicable or unspecified; O69.81X0 Labor and delivery complicated by cord around neck, without compression, not applicable or unspecified; Z3A.36 36 weeks gestation of pregnancy; Z37.0 Single live birth; Z87.59 Personal history of other complications of pregnancy, childbirth and the puerperium
CPT/HCPCS: 59050; 85025; 85027; 85730; 86850; 86900; 86901; 86920; 86922; 99218; J7120; A4216; G0378; J2405

== ENCOUNTER 2023-10-15 08:04 | Inpatient (IN) | payer SELFPAY, OTHER ==
[2023-10-15] VITALS (51 sets, daily range): BP systolic 108–140; BP diastolic 61–83; PULSE 68–103; RESP 16–18; TEMP 36.3–37; O2SAT 81–100; BMI 28.0
[2023-10-15] MEDS: Lactated Ringers 1,000 ML 50 ML IV (07:40)
[2023-10-15] MEDS: Penicillin G Pot 5,000,000 UNITS in 0.9% Normal Saline (100mL MB+) 100 ML 150 UNITS IV (07:57)
[2023-10-15 08:16] LABS: Absolute Lymphocyte Count 1.22 X10^3/uL (0.83-4.51); Basophil# 0.04 X10^3/uL; Basophil% 0.6 % (0-1); Eosinophil# 0.13 X10^3/uL; Eosinophils% 1.8 % (0-5); Hematocrit 31.1 % (37-47); Hemoglobin 10.2 g/dL (12.0-15.0); Lymphocyte # 1.22 X10^3/ul (0.83-4.51); Mean Corp Hgb Conc 32.8 g/dL (32-36); Mean Corpuscular Hgb 28.1 pg (27.0-32.0); Mean Corpuscular Volume 85.7 fL (81-99); Mean Platelet Vol. 9.9 fl (6.2-12.0); Monocyte# 0.74 X10^3/uL; Monocyte% 10.3 % (0-10); NRBC Flagged by Analyzer 0 % (0-5); Neutrophil # 4.99 X10^3/uL (2.7-7.7); Neutrophil % 69.7 % (47-70); Platelet Count 407 K/mm3 (150-450); RBC Distribution Width CV 13.7 % (11.6-14.6); RBC Distribution Width SD 42.4 fl (35.1-43.9); Red Blood Count 3.63 M/mm3 (4.2-5.4); White Blood Count 7.2 K/mm3 (4.4-11.0)
[2023-10-15] MEDS: Oxytocin 15 Units/NS 250ml 15 UNITS/250 ML IV.SOLN 2 UNITS IV (08:45)
[2023-10-15] MEDS: 0.9% Normal Saline Single 100 ML IV.SOLN. INTRA-UTER (08:46)
--- NOTE | 2023-10-15 08:46 | PN.OBGYN_ITS ---
Subjective Subjective Stuart bulb placed with 55 cc of fluid. 60/-2 Objective Data Objective Data Vital Signs: Vital Signs Temp Pulse Resp BP Pulse Ox 97.4 F L 96 16 140/83 H 97 10/15/23 07:32 10/15/23 08:37 10/15/23 07:32 10/15/23 08:37 10/15/23 07:33 Weight: 72 kg Body Mass Index (BMI) 28.0 Lab / Micro Data 10/15/23 07:40 Labs: Laboratory Results - last 24 hr 10/15/23 07:40: WBC 7.2, RBC 3.63 L, Hgb 10.2 L, Hct 31.1 L, MCV 85.7, MCH 28.1, MCHC 32.8, RDW Std Deviation 42.4, RDW Coeff of Shannan 13.7, Plt Count 407, MPV 9.9, Immature Gran % (Auto) 0.600, Neut % (Auto) 69.7, Lymph % (Auto) 17.0 L, [place] % (Auto) 10.3 H, Eos % (Auto) 1.8, Baso % (Auto) 0.6, Absolute Neuts (auto) 5.0, Absolute Lymphs (auto) 1.22, Nucleated RBC % 0 Physical Exam Const alert and no apparent distress General Appearance: cooperative HEENT normocephalic Resp normal respiratory effort Cardio regular rate GI soft to palpation GI Narrative: gravid, nontender, appropriate for gestational age Manual OB Exam: dilated 2, effaced 60 and station -2 Extremity no calf tenderness General Extremity: edema Skin no wounds Rashes: No rashes noted Psych activity/motor behavior normal NST FHR Rate Baby B Baseline: 145 Accelerations:: 15 x 15 NST Reactive:: Yes FHR Category:: Category I Uterine Activity:: irregular Assessment & Plan (1) History of hemorrhage: (2) Positive GBS test: (3) Desires (vaginal after ) trial: (4) Previous section: COMMENT: 2019 previa (5) 39 weeks gestation of :
--- NOTE | 2023-10-15 08:46 | PCM.HP.OB ---
HPI - General General Date of Admission: 10/15/23 Date of Service: 10/15/23 Chief Complaint: IOL TOLAC HPI Narrative CARMELA QUIGLEY, is a 28 F who presents enriquez bulb IOL. Previous vaginal delviery of twins. Primary c/s for previa. Desires TOLAC. R/B/A reviewed. Desires no edpidural Maternal Data Information Final YARON: 10/16/23 Gestational age: 39+6 PFSH PFSH Medical History (Updated 10/15/23 @ 17:[address] Carlee Vallejo MD) History of blood transfusion History of pre-term labor hemorrhage Pre-eclampsia Home Medications vits,calcium no.78-iron fumarate-folic acid 29 mg-1 mg tablet (Prenatabs FA) 1 tab PO DAILY 07/21/17 [History Last Taken 10/15/23 06:00] ibuprofen 600 mg tablet 600 mg PO Q8H PRN PRN Mild Pain (1-310) #30 tabs 02/26/19 [Rx Last Taken Unknown] Allergy/AdvReac Type Severity Reaction Status Date / Time No Known Allergies Allergy Verified 10/15/23 07:50 Surgical History (Updated 10/15/23 @ 17:[address] Carlee Vallejo MD) Previous section Social History Smoking Status: Never smoker History Elective abortions Hx Para 3 Spontaneous abortions Hx # Term Pregnancies Ectopic pregnancies Hx # Pregnancies Multiple births # of living children NST FHR Rate Baby A Baseline: 140 Variability:: Moderate Accelerations:: 15 x 15 NST Reactive:: Yes FHR Category:: Category I Uterine Activity:: occasional ROS Constitutional Constitutional: Denies fatigue, fever(s) or malaise Eyes Eyes: Denies change in vision ENT HEENT: Denies dizziness or headache(s) Cardiovascular Cardiovascular: Denies chest pain, dyspnea or lightheadedness Respiratory/Chest Respiratory/Chest: Denies cough or dyspnea Gastrointestinal Gastrointestinal: Denies change in bowel habits Genitourinary Genitourinary: Denies burning urination or genital lesions Integumentary Integumentary: Denies rash Neurologic Neurologic: Denies confusion, dizziness, headache(s), numbness or weakness Vital Signs Vital Signs Vital Signs: 10/15/23 07:32 10/15/23 07:32 10/15/23 07:33 Temperature Temperature Source Pulse Rate 103 H 103 H Respiratory Rate Blood Pressure 125/69 H BP Systolic 125 BP Diastolic 69 Pulse Ox 10/15/23 07:33 10/15/23 07:32 10/15/23 07:32 Temperature Temperature Source Temporal Pulse Rate Respiratory Rate 16 Blood Pressure BP Systolic BP Diastolic Pulse Ox 97 10/15/23 07:32 10/15/23 08:37 10/15/23 08:37 Temperature 97.4 F L Temperature Source Pulse Rate 96 Respiratory Rate Blood Pressure 140/83 H BP Systolic 140 BP Diastolic 83 Pulse Ox Weight Weight: 72 kg Body Mass Index (BMI) 28.0 Physical Exam Const alert and no apparent distress General Appearance: cooperative HEENT normocephalic Resp normal respiratory effort GI soft to palpation GI Narrative: gravid, nontender, appropriate for gestational age Manual OB Exam: dilated 2/60/-3 Extremity no calf tenderness General Extremity: edema Skin no wounds Rashes: No rashes noted Psych activity/motor behavior normal Labs Labs Labs: Blood Type A POSITIVE Antibody Screen NEGATIVE Hct 31.1 % (37-47) L Hgb 10.2 g/dL (12.0-15.0) L Obstetrics Ultrasound Syphilis Total Ab Non-reactive Rubella IgG Antibody 491.0 IU/mL Hep Bs Antigen Negative (Negative) Hepatitis C Ab (EIA) 0.1 s/co ratio (0.0-0.9) HIV 1&2 Antibody Non-Reactive (Nonreactive) Glucose 1 Hr 50 gm 122 mg/dL (70-140) Group B Strep DNA POSITIVE (Negative) H Rhogam given: No Assessment & Plan (1) Desires (vaginal after ) trial: PLAN: Enriquez bulb iol (2) Previous section: COMMENT: 2019 previa (3) 39 weeks gestation of : (4) Positive GBS test: PLAN: PCN (5) History of hemorrhage:
[2023-10-15 09:16] LABS: Syphilis Antibodies Non-reactive
[2023-10-15] MEDS: Penicillin G 3,000,000 Units 50 ML 100 UNITS IV ×2 (12:22→16:14)
--- NOTE | 2023-10-15 17:09 | PCM.PN.OB ---
Subjective Subjective AROM for clear fluid. No epidural. Objective Data Objective Data Vital Signs: Vital Signs Temp Pulse Resp BP Pulse Ox 98.1 F 89 16 120/69 100 10/15/23 16:22 10/15/23 16:22 10/15/23 16:22 10/15/23 16:22 10/15/23 13:40 Weight: 72 kg Body Mass Index (BMI) 28.0 Intake & Output: Intake and Output for Last 24 Hours 10/13/23 10/14/23 10/15/23 23:59 23:59 23:59 Intake Total 184.83 / 184.83 Balance 184.83 / 184.83 Lab / Micro Data 10/15/23 07:40 Labs: Laboratory Results - last 24 hr 10/15/23 07:40: WBC 7.2, RBC 3.63 L, Hgb 10.2 L, Hct 31.1 L, MCV 85.7, MCH 28.1, MCHC 32.8, RDW Std Deviation 42.4, RDW Coeff of Shannan 13.7, Plt Count 407, MPV 9.9, Immature Gran % (Auto) 0.600, Neut % (Auto) 69.7, Lymph % (Auto) 17.0 L, [place] % (Auto) 10.3 H, Eos % (Auto) 1.8, Baso % (Auto) 0.6, Absolute Neuts (auto) 5.0, Absolute Lymphs (auto) 1.22, Nucleated RBC % 0, Syphilis Total Ab Non-reactive, Blood Type A POSITIVE, Antibody Screen NEGATIVE Physical Exam Const alert and no apparent distress General Appearance: cooperative HEENT normocephalic Resp normal respiratory effort GI soft to palpation GI Narrative: gravid, nontender, appropriate for gestational age Manual OB Exam: dilated 4, effaced 60 and station -3 Extremity no calf tenderness General Extremity: edema Skin no wounds Rashes: No rashes noted Psych activity/motor behavior normal NST FHR Rate Baby A Baseline: 150 Variability:: Moderate Accelerations:: 15 x 15 Decelerations:: Variable FHR Category:: Category II Uterine Activity:: q 4 Assessment & Plan (1) 39 weeks gestation of : (2) Desires (vaginal after ) trial: (3) Positive GBS test: (4) History of hemorrhage: (5) Previous section: COMMENT: 2019 previa PLAN: Plan Pitocin per protocol
[2023-10-15] MEDS: Lidocaine 1% (20 ml mdv) 20 ML Vial INFILT (18:04)
--- NOTE | 2023-10-15 18:44 | EX.PCM.OBRPT ---
Assessment & Plan (1) (vaginal after ): (2) History of hemorrhage: Maternal Data Information Final YARON: 10/16/23 Gestational age: 39+6 Vaginal Delivery Maternal Presentation Maternal Presentation: Elective Induction Type of Induction: Pitocin and Stuart Bulb Operative Information Date of Procedure: 10/15/23 Pre-Operative Diagnosis: IOL previous c/s for previa. Hx of twin vaginal delivery Post-Operative Diagnosis: same, successful Surgery / Procedure Performed: Spontaneous Vaginal Delivery Type of Anesthesia: None and Local with 1% Lidocaine Estimated Blood Loss: 150 cc Time of Delivery: 18:00 Findings Description of Procedure: Patient pushed over an intact perineum through 2 pushes. Delivered the head in SIMRAN followed easily by the left and right shoulders. Cord around the body. The infant was placed on the maternal abdomen. The cord was clamped and cut. No cord blood was collected. Pitocin was given IV The placenta was delivered with gentle traction. Lidocaine was administered and a 1st degree laceration was repair with 3-0 Vicryl. Presentation: SIMRAN Amniotic Membrane Rupture Type: Artificial Amniotic Fluid Description: Clear Placental Delivery Description: Spontaneous Placenta Disposition: [facility] Cord Vessel Description: 3 Vessels Cord Entanglement: - (around body) A Gender: Female (1 minute): 8 (5 minute): 9 Delayed Cord Clamping: Yes Post Vaginal Delivery Medications Given After Delivery: IV Pitocin Laceration: 1st degree Complication Complications: None
[2023-10-15] MEDS: Acetaminophen 500 MG Tablet 1000 MG PO (20:05)
[2023-10-16 04:40] VITALS: BP 120/74; PULSE 80; RESP 14; TEMP 36.7; O2SAT 97
[2023-10-16] MEDS: Acetaminophen 500 MG Tablet 1000 MG PO ×2 (04:46→15:08)
--- NOTE | 2023-10-16 06:34 | PCM.PN.OB ---
Subjective Subjective Doing well. No complaints. Moderate lochia. Breast feeding. Pain controlled. Good PO and ambulating well. Objective Data Objective Data Vital Signs: Vital Signs Temp Pulse Resp BP Pulse Ox O2 Del Method 98.1 F 80 14 120/74 97 Room Air 10/16/23 04:40 10/16/23 04:40 10/16/23 04:40 10/16/23 04:40 10/16/23 04:40 10/16/23 04:40 Oxygen Delivery Method Room Air Weight: 72 kg Body Mass Index (BMI) 28.0 Intake & Output: Intake and Output for Last 24 Hours 10/14/23 10/15/23 10/16/23 23:59 23:59 23:59 Intake Total 1129.17 / 1129.17 Output Total 150 / 150 Balance 979.17 / 979.17 Lab / Micro Data 10/15/23 07:40 Labs: Laboratory Results - last 24 hr 10/15/23 07:40: WBC 7.2, RBC 3.63 L, Hgb 10.2 L, Hct 31.1 L, MCV 85.7, MCH 28.1, MCHC 32.8, RDW Std Deviation 42.4, RDW Coeff of Shannan 13.7, Plt Count 407, MPV 9.9, Immature Gran % (Auto) 0.600, Neut % (Auto) 69.7, Lymph % (Auto) 17.0 L, [place] % (Auto) 10.3 H, Eos % (Auto) 1.8, Baso % (Auto) 0.6, Absolute Neuts (auto) 5.0, Absolute Lymphs (auto) 1.22, Nucleated RBC % 0, Syphilis Total Ab Non-reactive, Blood Type A POSITIVE, Antibody Screen NEGATIVE ROS Constitutional Constitutional: Denies fatigue, fever(s) or malaise Eyes Eyes: Denies change in vision ENT HEENT: Denies dizziness or headache(s) Cardiovascular Cardiovascular: Denies chest pain, dyspnea or lightheadedness Respiratory/Chest Respiratory/Chest: Denies cough or dyspnea Gastrointestinal Gastrointestinal: Denies change in bowel habits Genitourinary Genitourinary: Denies burning urination or genital lesions Integumentary Integumentary: Denies rash Neurologic Neurologic: Denies confusion, dizziness, headache(s), numbness or weakness Physical Exam Const alert and no apparent distress Narrative: Fundus firm, below umbilicus. Assessment & Plan (1) (vaginal after ): (2) Positive GBS test:
[2023-10-16 07:37] VITALS: BP 115/77; PULSE 67; RESP 16; TEMP 36.5; O2SAT 97
[2023-10-16 11:33] VITALS: BP 119/69; PULSE 70; RESP 161; TEMP 36.5; O2SAT 97
[2023-10-16 16:00] VITALS: BP 109/63; PULSE 73; RESP 16; TEMP 36.5; O2SAT 97
--- NOTE | 2023-11-23 12:06 | NURSING ---
Corrected spelling of delivery doctor
== END 2023-10-16 19:05 | disposition home or self-care (01) | DRG 807 ==
PROVIDERS: Admitting Provider Obstetrics & Gynecology; PCP Family Medicine; Referring Provider Obstetrics & Gynecology; Visit Provider Obstetrics & Gynecology
DX: O34.219 Maternal care for unspecified type scar from previous cesarean delivery (principal); Z37.0 Single live birth; O70.0 First degree perineal laceration during delivery; O99.824 Streptococcus B carrier state complicating childbirth; Z3A.39 39 weeks gestation of pregnancy; Z87.59 Personal history of other complications of pregnancy, childbirth and the puerperium
CPT/HCPCS: 59025; 59050; 85025; 86780; 86850; 86900; 86901; 99221; J7120; G0378